=== PATIENT | female | born 1990 | race Caucasian/White ===

== ENCOUNTER 2017-04-01 16:12 | Emergency (ER) | payer OTHER ==
[2017-04-01 17:02] VITALS: BP 101/67
[2017-04-01] MEDS ORDERED: Ibuprofen TAB* 600 MG PO ONE (17:40)
--- NOTE | 2017-04-01 17:48 | UC ---
Breast Complaint - HPI Summary HPI Summary: Breast pain, fever, chills starting yesterday. Has 5-week old baby at home; this feels like when she had mastitis with older child. - History of Current Complaint Hx Obtained From: Patient Breast Chief Complaint: Pain, Left, Right, Color Changes Onset/Duration: Started Days Ago, Atraumatic Timing: Constant Breast Pain Aggravating Factors: Breast Feeding, Palpation Breast Pain Alleviating Factors: Support Breast Associated Signs/Symptoms: Fever, Redness, Warmth - Allergy/Home Medications Allergies/Adverse Reactions: Allergies Allergy/AdvReac Type Severity Reaction Status Date / Time Azithromycin [From Z-Bhupendra] Allergy Unknown Verified 04/01/17 17:02 Reaction Details Morphine Allergy Itching Verified 04/01/17 17:02 Home Medications: Home Medications Hydrocodone-Acetaminophen [[place] 5-325 mg] 1 tab PO 04/01/17 [History] PMH/Surg Hx/FS Hx/Imm Hx Previously Healthy: Yes - Surgical History Surgical History: Yes Surgery Procedure, Year, and Place: 2 2013 - Family History Known Family History: Negative: Blood Disorder - Social History Lives: With Family Alcohol Use: None Substance Use Type: None Smoking Status (MU): Never Smoked Tobacco - Immunization History Most Recent Influenza Vaccination: refussed Most Recent Tetanus Shot: hx Most Recent Pneumonia Vaccination: na Review of Systems Constitutional: Negative Skin: Other - redness bilat breasts Eyes: Negative ENT: Negative Respiratory: Negative Cardiovascular: Negative Gastrointestinal: Negative Genitourinary: Negative Motor: Negative Neurovascular: Negative Musculoskeletal: Negative Neurological: Negative Psychological: Negative All Other Systems Reviewed And Are Negative: Yes Physical Exam Triage Information Reviewed: Yes Appearance: Pain Distress - mild Vital Signs: Initial Vital Signs Temp 102.6 F 04/01/17 16:59 Pulse 113 04/01/17 16:59 Resp 18 04/01/17 16:59 BP 101/67 04/01/17 16:59 Pulse Ox 100 04/01/17 16:59 Vital Signs Reviewed: Yes Eye Exam: Normal, Other - PERRL Eyes: Positive: Conjunctiva Clear ENT Exam: Normal ENT: Positive: Normal ENT inspection, Hearing grossly normal, Pharynx normal, TMs normal Dental Exam: Normal Neck exam: Normal Neck: Positive: Supple, Nontender, No Lymphadenopathy Respiratory Exam: Normal Respiratory: Positive: Chest non-tender, Lungs clear, Normal breath sounds, No respiratory distress, No accessory muscle use Cardiovascular: Positive: No Murmur, Tachycardia Musculoskeletal Exam: Normal Neurological Exam: Normal Neurological: Positive: Alert Psychological Exam: Normal Skin Exam: Other - redness L lower breast, R lateral breast. Nipples leaking milk; no abscess palpated Breast Pain Course/Dx - Diagnoses Provider Diagnoses: Nonpurulent mastitis associated with Discharge - Discharge Plan Condition: Stable Disposition: HOME Prescriptions: Dicloxacillin CAP* [Dynapen CAP*] 500 mg PO QID #28 cap Patient Education Materials: Mastitis (ED) Referrals: Delfina Hong MD [Primary Care Provider] - Additional Instructions: Keep nursing and pumping to move the milk to prevent complications like abscess and worsening infection. It is safe to feel your baby while taking this medication.
== END 2017-04-01 17:50 | disposition home or self-care (01) ==
LOC: UCEAST 16:12
DX: O91.22 Nonpurulent mastitis associated with the puerperium (principal); Z88.4 Allergy status to anesthetic agent; Z88.5 Allergy status to narcotic agent
CPT/HCPCS: 99212; A9270-GY; G0463

== ENCOUNTER 2017-06-14 19:35 | Emergency (ER) | payer OTHER ==
[2017-06-14] MEDS ORDERED: NS 0.9% 1000 ML* 1,000 ML IV ONE (20:02)
[2017-06-14 20:25] LABS: Hematocrit 36 % (35-47); Hemoglobin 12.7 g/dl (12.0-16.0); Mean Corpuscular HGB Conc 35 g/dl (31-36); Mean Corpuscular Hemoglobin 31 pg (27-31); Mean Corpuscular Volume 88 fL (80-97); Mean Platelet Volume 8 um3 (7.4-10.4); Red Cell Distribution Width 14 % (10.5-15); White Blood Count 7.4 10^3/ul (3.5-10.8)
[2017-06-14 20:43] LABS: Urine Bacteria 1+ (Absent); Urine Bilirubin Negative (Negative); Urine Glucose Negative (Negative); Urine Nitrite Negative (Negative)
[2017-06-14 20:48] LABS: ALT 15 U/L (7-52); AST 15 U/L (13-39); Albumin 4.5 g/dL (3.2-5.2); Alkaline Phosphatase 103 U/L (34-104); Anion Gap 5 mmol/L (2-11); BUN/Creatinine Ratio 22.1 (8-20); Blood Urea Nitrogen 15 mg/dL (6-24); C Reactive Protein 9.78 mg/L (< 5.00); CO2 Carbon Dioxide 29 mmol/L (22-32); Calcium 9.4 mg/dL (8.6-10.3); Chloride 104 mmol/L (101-111); EGFR African American 133.5 (>60); EGFR Non-African American 103.8 (>60); Globulin 2.7 g/dL (2-4); Glucose 83 mg/dL (70-100); Lipase 31 U/L (11.0-82.0); Potassium 3.5 mmol/L (3.5-5.0); Sodium 138 mmol/L (133-145); Total Protein 7.2 g/dL (6.4-8.9)
--- NOTE | 2017-06-14 20:48 | ED ---
Raul Chisholm Rebecca, scribed for Landen Pritchett MD on 06/14/17 at 2004 . Abdominal Pain/Female - HPI Summary HPI Summary: Pt is a 26 y/o F who presents to ED c/o L flank pain. Sx began suddenly earlier today at approximately 1500. Pain is currently moderate, ranked 6/10. Treated pain with Tylenol at home, but that did not change symptoms. Sx aggravated and alleviated by nothing. Denies any other symptoms including N/V and fever. PMHx kidney stones with the last episode between 2-3 years ago. Last kidney stone was 9 mm and required a stent. - History of Current Complaint Chief Complaint: EDAbdPain Stated Complaint: LT SIDE PAIN Time Seen by Provider: 06/14/17 19:56 Hx Obtained From: Patient Hx Last Menstrual Period: post 5 weeks Onset/Duration: Sudden Onset, Still Present Severity Currently: Moderate Pain Intensity: 6 Pain Scale Used: 0-10 Numeric Location: Flank - Left Aggravating Factor(s): Nothing Alleviating Factor(s): Nothing Associated Signs and Symptoms: Positive: Negative. Negative: Fever, Nausea, Vomiting Simlar Episode/Dx as:: Prior kidney stone 2-3 years ago Allergies/Adverse Reactions: Allergies Allergy/AdvReac Type Severity Reaction Status Date / Time Azithromycin [From Z-Bhupendra] Allergy Unknown Verified 06/14/17 19:38 Reaction Details Morphine Allergy Itching Verified 06/14/17 19:38 PMH/Surg Hx/FS Hx/Imm Hx Endocrine/Hematology History: Denies: Hx Diabetes, Hx Thyroid Disease Cardiovascular History: Denies: Hx Hypertension Respiratory History: Denies: Hx Asthma, Hx Chronic Obstructive Pulmonary Disease (COPD) GI History: Denies: Hx Ulcer History: Reports: Hx Kidney Stones - RT Psychiatric History: Reports: Hx Anxiety, Hx Depression - Surgical History Surgery Procedure, Year, and Place: 2 2013 Infectious Disease History: No Infectious Disease History: Denies: Hx Hepatitis, Hx Human Immunodeficiency Virus (HIV), Traveled Outside the [place] in Last 30 Days - Family History Known Family History: Negative: Blood Disorder - Social History Alcohol Use: Occasionally Hx Substance Use: No Substance Use Type: Reports: None Hx Tobacco Use: No Smoking Status (MU): Former Smoker Review of Systems Negative: Fever Positive: Abdominal Pain - L flank pain. Negative: Vomiting, Nausea All Other Systems Reviewed And Are Negative: Yes Physical Exam Triage Information Reviewed: Yes Vital Signs On Initial Exam: Initial Vitals Temp Pulse Resp BP Pulse Ox 97.6 F 61 16 110/66 100 06/14/17 19:39 06/14/17 19:39 06/14/17 19:39 06/14/17 19:39 06/14/17 19:39 Vital Signs Reviewed: Yes Appearance: Positive: Well-Appearing, Pain Distress - mild discomfort Skin: Positive: Warm Head/Face: Positive: Normal Head/Face Inspection Eyes: Positive: MIGUEL ANGEL ENT: Positive: Normal ENT inspection Neck: Positive: Supple Respiratory/Lung Sounds: Positive: Breath Sounds Present Cardiovascular: Positive: RRR Abdomen Description: Positive: Nontender, Soft. Negative: CVA Tenderness (R), CVA Tenderness (L) Bowel Sounds: Positive: Present Neurological: Positive: Alert, Oriented to Person Place, Time Psychiatric: Positive: Affect/Mood Appropriate - Karel Coma Scale Coma Scale Total: 15 Diagnostics - Vital Signs Vital Signs Temp Pulse Resp BP Pulse Ox 06/14/17 19:39 97.6 F 61 16 110/66 100 - Laboratory Result Diagrams: 06/14/17 20:16 06/14/17 20:16 Lab Statement: Any lab studies that have been ordered have been reviewed, and results considered in the medical decision making process. - CT Abd/Pel CT CT Interpretation Completed By: Radiologist - 1. 0.8 cm RIGHT lower pole calyceal stone significantly enlarged compared with the prior exam. No additional renal stones. Negative for hydronephrosis. 2. Infra cecal appendix is normal in diameter and remarkable for multiple appendicoliths. No periappendiceal inflammatory change evident to suggest acute appendicitis. ED physician reviewed this radiology report and agrees. Re-Evaluation - Re-Evaluation First Eval Re-Evaluation Time: 22:34 Change: Improved Comment: Discussed results and D/C plan. Abdominal Pain Fem Course/Dx - Course Course Of Treatment: Pt is a 26 y/o F who presents to ED c/o L flank pain. Sx began suddenly earlier today at approximately 1500. Pain is currently moderate, ranked 6/10. Treated pain with Tylenol at home, but that did not change symptoms. Sx aggravated and alleviated by nothing. Denies any other symptoms including N/V and fever. PMHx kidney stones with the last episode between 2-3 years ago. Last kidney stone was 9 mm and required a stent. CT Abd/Pel reveals "1. 0.8 cm RIGHT lower pole calyceal stone significantly enlarged compared with the prior. exam. No additional renal stones. Negative for hydronephrosis. 2. Infra cecal appendix is normal in diameter and remarkable for multiple appendicoliths. No periappendiceal inflammatory change evident to suggest acute appendicitis." In the ED course, pt received fluids. Pt will be D/C to home with Dx of flank pain and a follow up with her PCP. She understands and agrees. - Diagnoses Provider Diagnoses: Flank pain Discharge - Discharge Plan Condition: Stable Disposition: HOME Patient Education Materials: Flank Pain (ED) Referrals: Delfina Hong MD [Primary Care Provider] - 3 Days The documentation as recorded by the Raul hanson Rebecca accurately reflects the service I personally performed and the decisions made by me, Landen Pritchett MD.
--- NOTE | 2017-06-14 22:00 | RAD ---
INDICATION: History of urolithiasis. LEFT flank pain. COMPARISON: June 21, 2014 CT. TECHNIQUE: Multidetector CT images were obtained from the lung bases to the ischial tuberosities. Evaluation of the viscera is limited without IV contrast. Multiplanar reformation. REPORT: Unremarkable visualized inferior thorax. The liver, gallbladder, pancreas, and spleen are unremarkable. Negative for CT abnormality of the upper GI or small bowel. Infra cecal appendix is normal in diameter and remarkable for multiple appendicoliths. No periappendiceal inflammatory change evident. Unremarkable colon. Negative for ascites or free air. Small fat-containing umbilical hernia without inflammatory change. Postsurgical change of prior at the lower anterior abdominal wall. Normal adrenal glands. 0.8 cm RIGHT lower pole calyceal stone significantly enlarged compared with the prior exam. No additional renal stones. Negative for hydronephrosis. Unremarkable nondilated ureters. Multiple pelvic phleboliths noted. Unremarkable partially distended urinary bladder. Unremarkable anteverted uterus and adnexal regions. Negative for lymphadenopathy. Normal diameter abdominal aorta and iliac arteries. Physiologic distention of the IVC. Negative for suspicious osseous lesions. IMPRESSION: 1. 0.8 cm RIGHT lower pole calyceal stone significantly enlarged compared with the prior exam. No additional renal stones. Negative for hydronephrosis. 2. Infra cecal appendix is normal in diameter and remarkable for multiple appendicoliths. No periappendiceal inflammatory change evident to suggest acute appendicitis.
[2017-06-14 22:48] VITALS: BP 100/56
== END 2017-06-14 22:47 | disposition home or self-care (01) ==
LOC: ED 19:35
DX: R10.9 Unspecified abdominal pain (principal); Z87.442 Personal history of urinary calculi; F41.8 Other specified anxiety disorders; Z87.891 Personal history of nicotine dependence; Z88.5 Allergy status to narcotic agent
CPT/HCPCS: 36415; 74176; 80053; 81003; 81015; 83605; 83690; 84702; 85025; 86140; 87086; 96360; 99283

== ENCOUNTER 2017-06-27 11:27 | Emergency (ER) | payer OTHER ==
[2017-06-27 11:46] VITALS: BP 99/55
--- NOTE | 2017-06-27 12:38 | UC ---
Dizzy HPI HPI Summary: 26 yo female has been ill for about a week Initially had a sore throat that resolve after Has had intermittent HAs (none now) Has bilateral hip pain Has marked fatigue...has slept 18 hr a day for the past 3 days has had two episodes of left arm paresthesias primarily involving the ulnar aspect of her arm one lasted about 15 minutes/today's lasted 2 hours no f/c no n/v/d no CP or SOB - History Of Current Complaint Chief Complaint: UCGeneralIllness Stated Complaint: TIRED HEADACHE HIP PAIN ARM NUMB Time Seen by Provider: 06/27/17 12:04 Hx Obtained From: Patient Hx Last Menstrual Period: OVER 1 YEAR Onset/Duration: Gradual Onset Timing: Constant Severity Initially: Moderate Severity Currently: Moderate Pain Intensity: 3 Pain Scale Used: 0-10 Numeric Character: Weak, Dizzy Aggravating Factor(s): Nothing Alleviating Factor(s): Nothing Associated Signs And Symptoms: Negative: Nausea, Vomiting, Diaphoresis, Tinnitus , Chest Pain, SOB, Palpitations, Unsteady Gait, Visual Changes, Decreased Oral Intake, Change In Medication, Change In Diet, OTC Medications - Allergies/Home Medications Allergies/Adverse Reactions: Allergies Allergy/AdvReac Type Severity Reaction Status Date / Time Azithromycin [From Z-Bhupendra] Allergy Unknown Verified 06/27/17 11:38 Reaction Details Morphine Allergy Itching Verified 06/27/17 11:38 Home Medications: Home Medications Cholecalciferol [Vitamin D] 1 cap PO DAILY 06/27/17 [History Confirmed 06/27/17] Probiotic Product [Probiotic] 1 tab PO DAILY 06/27/17 [History Confirmed ] Sertraline* [Zoloft*] 1 tab PO DAILY 06/27/17 [History Confirmed 06/27/17] PMH/Surg Hx/FS Hx/Imm Hx Previously Healthy: Yes - Surgical History Surgical History: Yes Surgery Procedure, Year, and Place: 2 2012, 2016 - Family History Known Family History: Positive: Other - mom has MS Negative: Diabetes, Blood Disorder - Social History Alcohol Use: Occasionally Substance Use Type: None Smoking Status (MU): Former Smoker - Immunization History Most Recent Influenza Vaccination: refussed Most Recent Tetanus Shot: hx Most Recent Pneumonia Vaccination: na Review of Systems Constitutional: Fatigue Skin: Negative Eyes: Negative ENT: Sore Throat - day one of illness only Respiratory: Negative Cardiovascular: Negative Gastrointestinal: Negative Genitourinary: Negative Motor: Negative Neurovascular: Negative Musculoskeletal: Arthralgia Neurological: Headache - intermittent/none now, Weakness Psychological: Negative Is Patient Immunocompromised?: No All Other Systems Reviewed And Are Negative: Yes Physical Exam Triage Information Reviewed: Yes Appearance: Well-Appearing, No Pain Distress, Well-Nourished Vital Signs: Initial Vital Signs Temp 98.1 F 06/27/17 11:41 Pulse 83 06/27/17 11:41 Resp 16 06/27/17 11:41 BP 99/55 06/27/17 11:41 Pulse Ox 98 06/27/17 11:41 Vital Signs Reviewed: Yes Eyes: Positive: Conjunctiva Clear ENT: Positive: Hearing grossly normal. Negative: Nasal congestion, Nasal drainage, Tonsillar exudate, Trismus, Muffled/hoarse voice Dental: Negative: Gross Decay/Caries @, Dental Fracture @, Abscess @, Cellulitis @, Cervical Lymphadenopathy, Bleeding Neck: Positive: Supple, Nontender, Enlarged Nodes @ - scatterred enlarged LNs Respiratory: Positive: Lungs clear, Normal breath sounds, No respiratory distress, No accessory muscle use Cardiovascular: Positive: RRR, No Murmur, Pulses Normal Abdomen Description: Positive: Nontender, No Organomegaly, Soft. Negative: CVA Tenderness (R), CVA Tenderness (L) Bowel Sounds: Positive: Present Neurological: Positive: Alert, Other: - CN2-12 intact/strenght 5/5, DTRs symmetrical Psychological: Positive: Normal Response To Family Skin Exam: Normal Dizzy Course/Dx - Differential Dx/Diagnosis Provider Diagnoses: Fatigue/weakness of uncertain cause. myalgia. paresthesias Discharge - Discharge Plan Condition: Stable Disposition: HOME Patient Education Materials: Paresthesia (ED), Arthralgia (ED), Fatigue (ED) Forms: *Work Release Referrals: Delfina Hong MD [Primary Care Provider] - As Soon As Possible Additional Instructions: blood work pending
[2017-06-27 14:20] LABS: Hematocrit 38 % (35-47); Hemoglobin 13.1 g/dl (12.0-16.0); Mean Corpuscular HGB Conc 35 g/dl (31-36); Mean Corpuscular Hemoglobin 31 pg (27-31); Mean Corpuscular Volume 89 fL (80-97); Mean Platelet Volume 9 um3 (7.4-10.4); Red Blood Count 4.24 10^6/ul (4.0-5.4); Red Cell Distribution Width 14 % (10.5-15)
[2017-06-27 14:41] LABS: Mono Internal Control QC Line Present
[2017-06-27 15:16] LABS: Erythrocyte Sed Rate 39 mm/Hr (0-14)
--- NOTE | 2017-06-28 13:01 | UC ---
Progress - Progress Note Progress Note: CBC reviewed mono neg tsh wnl sed rate mild elevation no change in treatment Taylor 06/28/17
== END 2017-06-27 12:43 | disposition home or self-care (01) ==
LOC: UCEAST 11:27
DX: R53.83 Other fatigue (principal); M79.1 Myalgia; R20.2 Paresthesia of skin; Z88.1 Allergy status to other antibiotic agents; Z88.5 Allergy status to narcotic agent; Z87.891 Personal history of nicotine dependence
CPT/HCPCS: 36415; 81003; 84443; 85025; 85652; 86038; 86308; 99211; G0463

== ENCOUNTER 2018-01-21 08:26 | Emergency (ER) | payer OTHER ==
--- NOTE | 2018-01-21 09:28 | UC ---
Abdominal Pain Female HPI - HPI Summary HPI Summary: Patient comes in with 5 days of periumbilical/left lower quadrant abdominal pain and low back pain. States she had some nausea/vomiting/diarrhea on day 1 but none since then. Pain is worse after eating. She feels gassy and bloated. She does have a history of H. pylori but this was successfully treated many years ago. States the symptoms feel similar. She denies fever or urinary symptoms. LMP over 2 years ago. Patient has PCOS and does not have menses. Is in a monogamous sexual relationship with her fianc and is not worried about STD. - History of Current Complaint Chief Complaint: UCGI Stated Complaint: STOMACH PAINS Time Seen by Provider: 01/21/18 09:10 Hx Obtained From: Patient Hx Last Menstrual Period: states 2 years ago - PCOS Onset/Duration: Gradual Onset, Lasting Days, Still Present Timing: Constant Severity Initially: Moderate Severity Currently: Moderate Pain Intensity: 5 Pain Scale Used: 0-10 Numeric Radiates: Yes Radiates to: Back Character: Cramping Aggravating Factor(s): Food Alleviating Factor(s): Nothing Associated Signs and Symptoms: Positive: Back Pain. Negative: Fever, Constipation, Blood in Stool, Urinary Symptoms, Vaginal Discharge Allergies/Adverse Reactions: Allergies Allergy/AdvReac Type Severity Reaction Status Date / Time azithromycin Allergy Unknown Verified 01/21/18 08:48 Reaction Details morphine Allergy Itching Verified 01/21/18 08:48 Home Medications: Home Medications NK [No Home Medications Reported] 01/21/18 [History Confirmed 01/21/18] PMH/Surg Hx/FS Hx/Imm Hx - Additional Past Medical History Additional PMH: PCOS GI/ History: Kidney Stones - Surgical History Surgical History: Yes Surgery Procedure, Year, and Place: 2 2012, 2017. AGE 2 ABDOMINAL/ LEFT LEG NECROTIZING FASCIITIS. TONSILS. WISDOM TEETH - Family History Known Family History: Positive: Other - mom has MS Negative: Hypertension, Diabetes, Blood Disorder Family History: KIDNEY STONES - Social History Alcohol Use: Occasionally Substance Use Type: None Smoking Status (MU): Light Every Day Tobacco Smoker Amount Used/How Often: 3 cig/ day - Immunization History Most Recent Influenza Vaccination: refussed Most Recent Tetanus Shot: hx Most Recent Pneumonia Vaccination: na Review of Systems Constitutional: Negative Respiratory: Negative Cardiovascular: Negative Gastrointestinal: Abdominal Pain Genitourinary: Negative All Other Systems Reviewed And Are Negative: Yes Physical Exam Triage Information Reviewed: Yes Appearance: Well-Appearing, No Pain Distress, Well-Nourished Vital Signs: Initial Vital Signs Temp 99.3 F 01/21/18 08:49 Pulse 78 01/21/18 08:49 Resp 16 01/21/18 08:49 BP 111/70 01/21/18 08:49 Pulse Ox 98 01/21/18 08:49 Vital Signs Reviewed: Yes Eyes: Positive: Conjunctiva Clear ENT: Positive: Hearing grossly normal Neck: Positive: Supple Respiratory: Positive: No respiratory distress, No accessory muscle use Cardiovascular: Positive: Pulses Normal Abdomen Description: Positive: Soft, Other: - TTP PERIUMBILICALLY, SUPRAPUBIC AND LLQ REGIONS. NO REBOUND OR RIGIDITY. Negative: CVA Tenderness (R), CVA Tenderness (L), Distended, Guarding Bowel Sounds: Positive: Present Musculoskeletal: Positive: No Edema Neurological: Positive: Alert Psychological: Positive: Age Appropriate Behavior Skin: Negative: rashes Diagnostics - Laboratory Diagnostic Studies Completed/Ordered: URINE DIP SP. GR. 1.015, TRACE BLOOD - Radiology CT ABD/PELVIS W/O CONTRAST Xray Interpretation: Positive (See Comments) - 1. NO EVIDENCE FOR ACUTE FINDING OR CAUSE FOR THE PATIENT'S ABDOMINAL PAIN IS SEEN. 2. NONOBSTRUCTING RIGHT RENAL CALCULUS. 3. MILD SPLENOMEGALY. Radiology Interpretation Completed By: Radiologist Abd Pain Female Course/Dx - Differential Dx/Diagnosis Provider Diagnoses: 1. ABDOMINAL PAIN, NOS. 2. 9MM KIDNEY STONE - RIGHT SIDE Discharge - Sign-Out/Discharge Documenting (check all that apply): Discharge - Discharge Plan Condition: Stable Disposition: HOME Patient Education Materials: Kidney Stones (ED), Abdominal Pain (ED) Referrals: Delfina Hong MD [Primary Care Provider] - If Needed Magen Whitten MD [Medical Doctor] - 1 Week Additional Instructions: Unclear etiology of your abdominal pain today. CT scan of the abdomen and pelvis shows a stable 9 mm stone in the right kidney. I would recommend you follow-up with Dr. Whitten about further treatment for this stone. If your abdominal symptoms do not improve call GI for an appointment. You may try taking Prilosec or Prevacid in the morning at least 30 minutes before eating to see if this helps your symptoms. Go to the [facility] ED without fail if you develop worsening pain, fever, blood per rectum, shortness of breath, nausea/vomiting or any other concerning symptoms. [facility] Address: [address], [place] [address] - Billing Disposition and Condition Condition: STABLE Disposition: HOME
--- NOTE | 2018-01-21 10:21 | RAD ---
INDICATION: Hematuria back and abdominal pain. COMPARISON: Comparison is made with a prior CT of the abdomen and pelvis from June 14, 2017. TECHNIQUE: A CT scan of the abdomen and pelvis was performed without intravenous or oral contrast. Contiguous axial sections were obtained from the lung bases through the symphysis pubis. Images were reconstructed in the coronal and sagittal planes. FINDINGS: The lung bases are clear. No pleural effusion is present. The liver is normal in size without significant focal abnormality seen on this noncontrast study. No calcified gallstones are noted. The spleen is mildly enlarged without focal abnormality. The pancreas appears to be within normal limits. The adrenal glands and kidneys are normal in size. There is a calculus in the lower pole of the right kidney measuring 0.9 cm in size which is unchanged. No hydronephrosis is seen. No bladder calculi are noted. The aorta is normal in caliber without significant calcific plaque. No significant enlarged retroperitoneal lymph nodes are seen. The stomach, small and large bowel appear nondistended. The appendix appears normal in caliber. There are a couple appendicoliths present which are unchanged. No inflammatory changes are noted. There is moderate descending and sigmoid diverticulosis without evidence for diverticulitis. There is diastases of the rectus abdominis muscles which is unchanged. The uterus is anteverted and normal in size. No free intraperitoneal air or fluid is seen. No significant focal osseous abnormality is seen. IMPRESSION: 1. NO EVIDENCE FOR ACUTE FINDING OR CAUSE FOR THE PATIENT'S ABDOMINAL PAIN IS SEEN. 2. NONOBSTRUCTING RIGHT RENAL CALCULUS. 3. MILD SPLENOMEGALY.
[2018-01-21 10:44] VITALS: BP 109/59
== END 2018-01-21 10:56 | disposition home or self-care (01) ==
LOC: UCEAST 08:26
DX: N20.0 Calculus of kidney (principal); Z87.442 Personal history of urinary calculi; R16.1 Splenomegaly, not elsewhere classified; Z32.02 Encounter for pregnancy test, result negative; R10.33 Periumbilical pain; R10.32 Left lower quadrant pain; Z88.1 Allergy status to other antibiotic agents; Z88.5 Allergy status to narcotic agent; F17.210 Nicotine dependence, cigarettes, uncomplicated
CPT/HCPCS: 74176; 81003; 84702; 99212; G0463

== ENCOUNTER 2018-01-22 09:26 | Emergency (ER) | payer OTHER ==
[2018-01-22 10:52] LABS: ABS Basophils 0.1 10^3/ul (0-0.2); ABS Eosinophils 0.1 10^3/ul (0-0.6); ABS Lymphocytes 2.1 10^3/ul (1.0-4.8); ABS Monocytes 0.4 10^3/ul (0-0.8); ABS Neutrophils 3.3 10^3/ul (1.5-7.7); ABS Nucleated RBC 0 10^3/ul; Eosinophil % 1.4 % (0-6); Hematocrit 38 % (35-47); Hemoglobin 13.1 g/dl (12.0-16.0); Lymphocyte % 35.7 % (25-47); Mean Corpuscular HGB Conc 35 g/dl (31-36); Mean Corpuscular Hemoglobin 31 pg (27-31); Mean Corpuscular Volume 89 fL (80-97); Mean Platelet Volume 8.2 um3 (7.4-10.4); Nucleated Red Blood Cells % 0; Platelet Count 200 10^3/ul (150-450); Red Blood Count 4.27 10^6/ul (4.0-5.4); Red Cell Distribution Width 13 % (10.5-15)
[2018-01-22 11:15] LABS: EGFR Non-African American 110.5 (>60)
[2018-01-22 11:36] VITALS: BP 104/62
--- NOTE | 2018-01-22 12:22 | RAD ---
INDICATION: Lower abdominal pain in a woman reported to have polycystic ovarian syndrome COMPARISON: Most recent pelvic ultrasound is dated October 01, 2013. There is also a CT of the abdomen and pelvis dated January 21, 2018. TECHNIQUE: Real-time transabdominal only ultrasound examination of the female pelvis including grayscale and Doppler color flow imaging. FINDINGS: Uterus: The uterus is normal in size and echogenicity measuring 7.5 x 3.4 x 4.2 cm. The endometrial stripe is smooth and uniform measuring 7 mm in thickness. Ovaries: The right and left ovary measure 3.0 x 2.0 x 1.6 cm and 2.5 x 1.2 x 2.8 cm, respectively. Normal arterial and venous waveforms are identified. Appearance is within normal limits for the patient's age. There is no free fluid in the cul-de-sac. IMPRESSION: Normal and age-appropriate pelvic ultrasound.
--- NOTE | 2018-01-22 12:38 | ED ---
Abdominal Pain/Female - HPI Summary HPI Summary: Patient here with periumbilical pain 1 week. She noticed this pain upon waking Wednesday morning and reports it's worse with eating - not worse with drinking water. She denies fevers, chills, nausea, vomiting, diarrhea. Last bowel movement was yesterday and was normal for her. H/o h. pylori which she thought this was at first but feels it's different as the week has gone on. Has not tried anything for pain relief such as heat, ibuprofen, acetaminophen, PPI, tums, etc. Otherwise, no previous issues with her gastrointestinal tract (ie. IBS, crohn's, UC, etc). She does have a history of 2 C-sections. Denies recent injury to her abdomen/pelvic region. Denies vaginal discharge, itching irritation and has not had a period in over a year she has PCOS. Denies history of uterine fibroids or issues with her PCOS causing painful cysts or torsion. [facility] and had a noncontrast CT of her abdomen and pelvis which revealed a renal calculi on the right without obstruction along with hematuria on UA. Denies dysuria, urinary frequency, urinary urge and hesitation. She was also found to have diverticulosis without inflammation. Clinically, she appears to have an umbilical hernia and reports it's tender sometimes with palpation but not always. - History of Current Complaint Hx Obtained From: Patient Hx Last Menstrual Period: states 2 years ago - PCOS Pain Intensity: 8 <Violeta Narvaez - Last Filed: 01/24/18 07:19> <Gwyn Whiteside - Last Filed: 01/24/18 08:09> - History of Current Complaint Chief Complaint: EDAbdPain Stated Complaint: ABD PAIN Time Seen by Provider: 01/22/18 10:18 Allergies/Adverse Reactions: Allergies Allergy/AdvReac Type Severity Reaction Status Date / Time azithromycin Allergy Unknown Verified 01/22/18 09:37 Reaction Details morphine Allergy Itching Verified 01/22/18 09:37 PMH/Surg Hx/FS Hx/Imm Hx Previously Healthy: Yes Endocrine/Hematology History: Denies: Hx Anticoagulant Therapy, Hx Blood Disorders, Hx Diabetes, Hx Thyroid Disease, Hx Anemia, Hx Unexplained Bleeding, Hx Coagulopothy Cardiovascular History: Denies: Hx Aneurysm, Hx Hypertension, Hx Pacemaker/ICD Respiratory History: Denies: Hx Asthma, Hx Chronic Obstructive Pulmonary Disease (COPD) GI History: Reports: Hx Ulcer - H. pylori History: Reports: Hx Kidney Stones - 2013 Denies: Hx Renal Disease Sensory History: Denies: Hx Hearing Aid Psychiatric History: Reports: Hx Anxiety, Hx Depression Denies: Hx Panic Disorder - Surgical History Surgery Procedure, Year, and Place: 2 2012, 2017. AGE 2 ABDOMINAL/ LEFT LEG NECROTIZING FASCIITIS. TONSILS. 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 Negative: Fever, Fatigue Eyes: Negative ENT: Negative Cardiovascular: Negative Respiratory: Negative Positive: Abdominal Pain. Negative: Vomiting, Diarrhea, Nausea Genitourinary: Negative Musculoskeletal: Negative Skin: Negative Neurological: Negative Psychological: Normal All Other Systems Reviewed And Are Negative: Yes <Violeta Narvaez - Last Filed: 01/24/18 07:19> Physical Exam Triage Information Reviewed: Yes Vital Signs On Initial Exam: Initial Vitals Temp Pulse Resp BP Pulse Ox 98.5 F 86 14 107/66 98 01/22/18 09:34 01/22/18 09:34 01/22/18 09:34 01/22/18 09:34 01/22/18 09:34 Vital Signs Reviewed: Yes Appearance: Positive: Well-Appearing, No Pain Distress, Obese Skin: Positive: Warm, Skin Color Reflects Adequate Perfusion, Dry Head/Face: Positive: Normal Head/Face Inspection Eyes: Positive: Normal, EOMI, Conjunctiva Clear - anicteric sclera ENT: Positive: Normal ENT inspection, Hearing grossly normal, Pharynx normal - mucosa moist, TMs normal Neck: Positive: Supple, Nontender, No Lymphadenopathy Respiratory/Lung Sounds: Positive: Clear to Auscultation, Breath Sounds Present. Negative: Rales, Rhonchi, Wheezes Cardiovascular: Positive: Normal, RRR, S1, S2 Abdomen Description: Positive: No Organomegaly, Soft, Hernia @ - umbilical - reducible - intermittently tender, Other: - lower ab TTP - B/L lower quadrants and prepubetal region - no rebounding. Negative: CVA Tenderness (R), CVA Tenderness (L), Distended, Guarding Bowel Sounds: Positive: Present Pelvic Exam: Positive: External Exam Normal, Speculum Exam Normal, Bimanual Exam Normal, No Cerv. Motion Tender, No Masses. Negative: Active Bleeding Musculoskeletal: Positive: Normal, Strength/ROM Intact Neurological: Positive: Normal, Sensory/Motor Intact, Alert, Oriented to Person Place, Time, CN Intact II-III Psychiatric: Positive: Other - blunted affect <Violeta Narvaez - Last Filed: 01/24/18 07:19> Vital Signs On Initial Exam: Initial Vitals Temp Pulse Resp BP Pulse Ox 98.5 F 86 14 107/66 98 01/22/18 09:34 01/22/18 09:34 01/22/18 09:34 01/22/18 09:34 01/22/18 09:34 <Gwyn Whiteside - Last Filed: 01/24/18 08:09> Diagnostics - Vital Signs Vital Signs Temp Pulse Resp BP Pulse Ox 01/22/18 11:38 63 100 01/22/18 11:35 98.7 F 58 14 104/62 100 01/22/18 10:30 69 102/67 97 01/22/18 10:10 78 97 01/22/18 10:09 102/57 01/22/18 09:34 98.5 F 86 14 107/66 98 - Laboratory Lab Results: Lab Results 01/22/18 01/22/18 01/22/18 Range/Units 10:39 10:39 10:39 WBC 6.0 (3.5-10.8) 10^3/ul RBC 4.27 (4.0-5.4) 10^6/ul Hgb 13.1 (12.0-16.0) g/dl Hct 38 (35-47) % MCV 89 (80-97) fL MCH 31 (27-31) pg MCHC 35 (31-36) g/dl RDW 13 (10.5-15) % Plt Count 200 (150-450) 10^3/ul MPV 8.2 (7.4-10.4) um3 Neut % (Auto) 55.7 (38-83) % Lymph % (Auto) 35.7 (25-47) % [place] % (Auto) 6.1 (0-7) % Eos % (Auto) 1.4 (0-6) % Baso % (Auto) 1.1 (0-2) % Absolute Neuts (auto) 3.3 (1.5-7.7) 10^3/ul Absolute Lymphs (auto) 2.1 (1.0-4.8) 10^3/ul Absolute Monos (auto) 0.4 (0-0.8) 10^3/ul Absolute Eos (auto) 0.1 (0-0.6) 10^3/ul Absolute Basos (auto) 0.1 (0-0.2) 10^3/ul Absolute Nucleated RBC 0 10^3/ul Nucleated RBC % 0 Sodium 139 (139-145) mmol/L Potassium 3.7 (3.5-5.0) mmol/L Chloride 105 (101-111) mmol/L Carbon Dioxide 27 (22-32) mmol/L Anion Gap 7 (2-11) mmol/L BUN 10 (6-24) mg/dL Creatinine 0.64 (0.51-0.95) mg/dL Est GFR ( Amer) 142.1 (>60) Est GFR (Non-Af Amer) 110.5 (>60) BUN/Creatinine Ratio 15.6 (8-20) Glucose 105 H (70-100) mg/dL Lactic Acid 0.9 (0.5-2.0) mmol/L Calcium 9.2 (8.6-10.3) mg/dL Magnesium 2.0 (1.9-2.7) mg/dL Total Bilirubin 0.30 (0.2-1.0) mg/dL AST 13 (13-39) U/L ALT 11 (7-52) U/L Alkaline Phosphatase 90 (34-104) U/L C-Reactive Protein 10.60 H (< 5.00) mg/L Total Protein 7.3 (6.4-8.9) g/dL Albumin 4.3 (3.2-5.2) g/dL Globulin 3.0 (2-4) g/dL Albumin/Globulin Ratio 1.4 (1-3) Lipase 21 (11.0-82.0) U/L Beta HCG, Quant < 0.60 mIU/mL Result Diagrams: 01/22/18 10:39 01/22/18 10:39 Lab Statement: Any lab studies that have been ordered have been reviewed, and results considered in the medical decision making process. <Violeta Narvaez - Last Filed: 01/24/18 07:19> - Vital Signs Vital Signs Temp Pulse Resp BP Pulse Ox 01/22/18 13:17 98.7 F 63 14 104/62 100 01/22/18 11:38 63 100 01/22/18 11:35 98.7 F 58 14 104/62 100 01/22/18 10:30 69 102/67 97 01/22/18 10:10 78 97 01/22/18 10:09 102/57 01/22/18 09:34 98.5 F 86 14 107/66 98 - Laboratory Lab Results: Lab Results 01/22/18 01/22/18 01/22/18 Range/Units 10:39 10:39 10:39 WBC 6.0 (3.5-10.8) 10^3/ul RBC 4.27 (4.0-5.4) 10^6/ul Hgb 13.1 (12.0-16.0) g/dl Hct 38 (35-47) % MCV 89 (80-97) fL MCH 31 (27-31) pg MCHC 35 (31-36) g/dl RDW 13 (10.5-15) % Plt Count 200 (150-450) 10^3/ul MPV 8.2 (7.4-10.4) um3 Neut % (Auto) 55.7 (38-83) % Lymph % (Auto) 35.7 (25-47) % [place] % (Auto) 6.1 (0-7) % Eos % (Auto) 1.4 (0-6) % Baso % (Auto) 1.1 (0-2) % Absolute Neuts (auto) 3.3 (1.5-7.7) 10^3/ul Absolute Lymphs (auto) 2.1 (1.0-4.8) 10^3/ul Absolute Monos (auto) 0.4 (0-0.8) 10^3/ul Absolute Eos (auto) 0.1 (0-0.6) 10^3/ul Absolute Basos (auto) 0.1 (0-0.2) 10^3/ul Absolute Nucleated RBC 0 10^3/ul Nucleated RBC % 0 Sodium 139 (139-145) mmol/L Potassium 3.7 (3.5-5.0) mmol/L Chloride 105 (101-111) mmol/L Carbon Dioxide 27 (22-32) mmol/L Anion Gap 7 (2-11) mmol/L BUN 10 (6-24) mg/dL Creatinine 0.64 (0.51-0.95) mg/dL Est GFR ( Amer) 142.1 (>60) Est GFR (Non-Af Amer) 110.5 (>60) BUN/Creatinine Ratio 15.6 (8-20) Glucose 105 H (70-100) mg/dL Lactic Acid 0.9 (0.5-2.0) mmol/L Calcium 9.2 (8.6-10.3) mg/dL Magnesium 2.0 (1.9-2.7) mg/dL Total Bilirubin 0.30 (0.2-1.0) mg/dL AST 13 (13-39) U/L ALT 11 (7-52) U/L Alkaline Phosphatase 90 (34-104) U/L C-Reactive Protein 10.60 H (< 5.00) mg/L Total Protein 7.3 (6.4-8.9) g/dL Albumin 4.3 (3.2-5.2) g/dL Globulin 3.0 (2-4) g/dL Albumin/Globulin Ratio 1.4 (1-3) Lipase 21 (11.0-82.0) U/L Beta HCG, Quant < 0.60 mIU/mL Result Diagrams: 01/22/18 10:39 01/22/18 10:39 Lab Statement: Any lab studies that have been ordered have been reviewed, and results considered in the medical decision making process. <Gwyn Whiteside - Last Filed: 01/24/18 08:09> Abdominal Pain Fem Course/Dx - Course Course Of Treatment: Patient presents with 1 week h/o of abdominal pain in the periumbilic and lower quadrants of her abdomen. She was seen at [facility] yesterday where she had a noncontrast CT performed. The results indicate a right renal pole calculus with hematuria and diverticulosis without inflammation. She was seen by Dr. Whitten who ordered outpatient labs which were within normal limits. Patient has follow-up with Dr. Whitten to further investigate her renal stone however he does not feel this is the cause of her pain. She came here today because she feels her pain is getting worse. With a history of PCOS and lack of pelvic exam, both manual pelvic and ultrasound pelvic imaging were done here today. These were negative for acute pathology. Her physical exam is positive for an umbilical hernia but this is reducible and only tender some of the time. Since she is still eating, drinking and moving her bowels without nausea or vomiting and no acute findings of incarcerated hernia on CT yesterday, this does not appear to need surgical intervention at this time. Will have her follow-up with PCP. I would also like to treat her today for possible gastritis as she has a history of H pylori and reports pain in the morning as well as with eating. Patient would like to try GI cocktail and Protonix here today and will follow up with PCP for further testing and treatment as needed. She opted not to wait to see if these meds help but would like to take them and see how she feels when she gets home. Nurse later reports when she went into room to persent pt w/ meds, she was no where to be found. Will mail d/c instructions along w/ danger s/sx of when to return to ED. <Violeta Narvaez - Last Filed: 01/24/18 07:19> <Gwyn Whiteside - Last Filed: 01/24/18 08:09> - Diagnoses Provider Diagnoses: Abdominal pain, Umbilical hernia Discharge - Sign-Out/Discharge Documenting (check all that apply): Discharge - Billing Disposition and Condition Condition: STABLE Disposition: HOME <Violeta Narvaez - Last Filed: 01/24/18 07:19> - Billing Disposition and Condition Condition: STABLE Disposition: HOME <Gwyn Whiteside - Last Filed: 01/24/18 08:09> - Discharge Plan Condition: Stable Disposition: HOME Patient Education Materials: Gastritis (ED), Umbilical Hernia (ED), Acute Abdominal Pain (DC) Referrals: Delfina Hong MD [Primary Care Provider] - Additional Instructions: The definitive cause of your abdominal pain was not identified today however it is suspected you could have gastritis. Medications were ordered free to try however he left before receiving these. You may try these [id number]: Prilosec or Prevacid. It is also encouraged that she will avoid NSAID such as aspirin, Aleve, ibuprofen. If he developed dark or bloody stool, return to the emergency department. Otherwise, follow up with her PCP to report if these medications have helped or not and to discuss possible further testing for H. pylori which she had in the past. You also appeared to have an umbilical hernia however this does not appear to require acute surgery. May follow up with her primary care provider if this seems to be worse as a surgical consult may be necessary in the future. If you develop difficulty eating, drinking, moving her bowels, vomiting, fever, return to the emergency department. It is also encouraged that you keep your follow-up appointment with Dr. Whitten to further discuss your kidney stone.
[2018-01-22] MEDS ORDERED: Al Hydrox/Mg Hydrox/Simet LIQ* 30 ML UDC PO ONE (12:39)
[2018-01-22] MEDS ORDERED: Lidocaine 2% VISCOUS* 15 ML UDC PO ONE (12:39)
[2018-01-22] MEDS ORDERED: Pantoprazole IV* 40 MG IV ONE (12:39)
[2018-01-22] MEDS ORDERED: CMC:Pantoprazole TAB (NF) 40 MG TAB PO SCH (13:00)
== END 2018-01-22 13:19 | disposition home or self-care (01) ==
LOC: ED 09:26
DX: K42.9 Umbilical hernia without obstruction or gangrene (principal); F17.210 Nicotine dependence, cigarettes, uncomplicated; R10.30 Lower abdominal pain, unspecified
CPT/HCPCS: 36415; 76856; 80053; 83605; 83690; 83735; 84702; 85025; 86140; 87480; 87491; 87510; 87591; 87661; 99282; A9270-GY

== ENCOUNTER 2018-01-31 10:34 | Day surgery (SDC) | payer OTHER ==
--- NOTE | 2018-01-24 21:58 | HP ---
CC: Delfina Naranjo MD * ADMITTING HISTORY AND PHYSICAL: DATE OF ADMISSION: 01/31/18 ADMITTING DIAGNOSIS: Right renal calculus. PLANNED PROCEDURE: Right ureteral stent insertion and shockwave lithotripsy of right renal calculus. SURGEON: Dr. Whitten. HISTORY OF PRESENT ILLNESS: Shilpa Kuhn is a 27-year-old young lady with a history of recurrent renal calculi. She recently had been evaluated for abdominal pain and was noted to have a 9 to 10 mm calculus in the right kidney without hydronephrosis. She would like to have treatment for the same and is now being brought in for right stent insertion and shockwave lithotripsy. MEDICATIONS ON ADMISSION: None. ALLERGIES: MORPHINE (itching). FAMILY HISTORY: Mother has a history of kidney stones. REVIEW OF SYSTEMS: She is otherwise in excellent health. There is no history of chest pain or shortness of breath. There is no history of diabetes mellitus or any other major systemic illness. PHYSICAL EXAMINATION GENERAL: Reveals a pleasant healthy appearing young lady. VITAL SIGNS: Blood pressure is 108/68, pulse 100 per minute and regular, temperature 97.7, oxygen saturation 98% on room air. LUNGS: Clear bilaterally. CARDIOVASCULAR: Regular rate and rhythm. S1, S2. ABDOMEN: Soft with mild right flank tenderness. IMPRESSION: A 27-year-old lady with a 9 to 10 mm calculus in the right kidney. I have discussed the procedure in detail including possible risks of bleeding, infection, possible injury to the kidney, and incomplete fragmentation. PLAN: Right stent insertion and shockwave lithotripsy of right renal calculus. [id number]/[facility] #: [id number] [facility]
[~2018-01-31 10:34] MED LIST: Buffered Lidocaine 0.9% SYRIN* 5 ML/SYR SYRINGE INTRADERM ONE; Dexamethasone IV* 4 MG/ML 1 ML (4 MG) IV SLOW PU ONE; Famotidine TAB* 20 MG PO ONE
[2018-01-31] MEDS ORDERED: Famotidine TAB* 20 MG ONE (10:43)
[2018-01-31] MEDS ORDERED: Dexamethasone IV* 4 MG/ML 1 ML (4 MG) ONE (10:43)
[2018-01-31] MEDS ORDERED: Levofloxacin 500 MG IVPREMIX(* 500 MG/100 ML BAG IVPB ONE (10:43)
[2018-01-31] MEDS ORDERED: Midazolam* 1 MG/ML 2 ML VIAL (2 MG) ONE (11:11)
[2018-01-31] MEDS ORDERED: fentaNYL* 50 MCG/ML 2 ML VIAL (100 MCG VIAL) ONE (11:11)
--- NOTE | 2018-01-31 11:54 | RAD ---
HISTORY: Right renal calculus COMPARISONS: January 21, 2018 VIEWS: Frontal views of the abdomen. FINDINGS: BOWEL: There is a nonobstructive bowel gas pattern. CALCULI: There are 2 calculi overlying the lower right renal parenchymal shadow, measuring 0.3 and 0.5 cm in size respectively. These appear to correspond to the calculus noted on the previous examination, and were either overlapping on the previous examination or have fragmented in the interval. BONES AND SOFT TISSUES: There are no osseous abnormalities. OTHER FINDINGS: The lung bases are clear. There is no subphrenic gas. IMPRESSION: RIGHT RENAL CALCULI
[2018-01-31] MEDS ORDERED: Propofol* 10 MG/ML 20 ML BTL IV PUSH ONE (12:20)
[2018-01-31] MEDS ORDERED: Ondansetron INJ* 2 MG/ML VIAL ONE (12:20)
[2018-01-31] MEDS ORDERED: DiMENhydriNATE IV* 50 MG/ML VIAL IV PUSH PRN (12:49)
[2018-01-31] MEDS ORDERED: fentaNYL* 50 MCG/ML 2 ML VIAL (100 MCG VIAL) IV PRN (12:49)
[2018-01-31] MEDS ORDERED: Naloxone* 0.4 MG/ML 1 ML VIAL IV PRN (12:49)
[2018-01-31 14:18] VITALS: BP 114/74
[2018-01-31] MEDS ORDERED: oxyCODONE/Acetamin 5/325 MG* TAB ONE (14:22)
--- NOTE | 2018-01-31 22:28 | OP ---
CC: Dr. Delfina Naranjo; Dr. Magen Whitten* OPERATIVE REPORT: DATE OF OPERATION: 01/31/18 - [facility] DATE OF : 88 SURGEON: Magen Whitten MD ANESTHESIOLOGIST: Dr. Elizabeth. ANESTHESIA: General. PRE-OP DIAGNOSES: 1. Right renal calculus. 2. Gross hematuria. POST-OP DIAGNOSES: 1. Right renal calculus. 2. Gross hematuria. OPERATIVE PROCEDURE: 1. Cystoscopy, right retrograde, right stent insertion. 2. Shockwave lithotripsy of right renal calculus. COMPLICATIONS: None. POSTOPERATIVE CONDITION: Stable. STENT USED: 6-Vietnamese stent, right ureter. INDICATIONS: Shilpa Kuhn is a 27-year-old young lady with a history of renal calculi. She was recently evaluated for flank pain and hematuria and noted to have a fairly large calculus in the right kidney. She is now being brought in for right stent insertion and lithotripsy. DESCRIPTION OF PROCEDURE: After induction of general anesthesia, the patient was placed in dorsal lithotomy position. Sequential compression devices were in place and functioning. Initial cystoscopy revealed a normal-appearing bladder. A guidewire was introduced into the right ureter. Mild fullness of the right collecting system was noted, even though the stone was in the lower pole and it is possible that the stone may have been migrating between the renal pelvis and the lower pole causing the intermittent pain and gross hematuria. A 6-Vietnamese stent was introduced and positioned under fluoroscopic with good proximal and distal positioning obtained. Next, the patient was placed on the lithotripsy table in supine position. The calculus was localized using fluoroscopy and shockwave lithotripsy was commenced at a rate of 90 shocks per minute. After the initial 300 shocks, there was a pause in lithotripsy for several minutes in an effort to minimize any potential trauma to the kidney. Lithotripsy was then resumed and a total of 2000 shocks were administered. The patient tolerated the procedure satisfactorily and was transferred back to recovery area in stable condition. [id number]/[facility] #: [id number] [facility]
== END 2018-01-31 14:50 | disposition home or self-care (01) ==
LOC: OR 10:34
PROVIDERS: ATTEND Urology
DX: N20.0 Calculus of kidney (principal); R31.0 Gross hematuria; Z72.0 Tobacco use; F41.8 Other specified anxiety disorders; J40 Bronchitis, not specified as acute or chronic
CPT/HCPCS: 74018; 81025; A9270-GY; C1876; J1100; J1956; J2250; J2405; J2704; J3010

== ENCOUNTER 2018-06-09 07:32 | Emergency (ER) | payer OTHER ==
--- NOTE | 2018-06-09 07:56 | ED ---
Psychiatric Complaint - HPI Summary HPI Summary: 27 y/o female presents to the ED c/o intermittent panic attacks since last night. Pt reports stress at home and at work. Sx not alleviated by medicaitons - gabapentin. Associated sx: chest heaviness and tingling radiating down her arms, facial numbness. Pt reports increased sleep recently. PMHx anxiety, but never seen in the hospital for it. Denies SI. Pt states she "forgot where she was when driving here". - History Of Current Complaint Chief Complaint: EDGeneral Hx Obtained From: Patient Hx Last Menstrual Period: states 2 years ago - PCOS Onset/Duration: Lasting Hours Timing: Intermittent Episode Lasting Character: Anxious Aggravating Factor(s): Recent Stress Alleviating Factor(s): Nothing Has Suicidal: Denies: Thoughts, With A Plan - Allergies/Home Medications Allergies/Adverse Reactions: Allergies Allergy/AdvReac Type Severity Reaction Status Date / Time azithromycin Allergy Unknown Verified 06/09/18 07:53 Reaction Details morphine Allergy Itching Verified 06/09/18 07:53 Home Medications: Home Medications Gabapentin CAP(*) [Neurontin 100 mg CAP(*)] 200 mg PO DAILY 06/09/18 [History Confirmed 06/09/18] Sertraline* [Zoloft*] 50 mg PO DAILY 06/09/18 [History Confirmed 06/09/18] PMH/Surg Hx/FS Hx/Imm Hx Previously Healthy: No Endocrine/Hematology History: Denies: Hx Anticoagulant Therapy, Hx Blood Disorders, Hx Diabetes, Hx Thyroid Disease, Hx Anemia, Hx Unexplained Bleeding Cardiovascular History: Denies: Hx Aneurysm, Hx Hypertension, Hx Pacemaker/ICD, Other Cardiovascular Problems/Disorders Respiratory History: Denies: Hx Asthma, Hx Chronic Obstructive Pulmonary Disease (COPD), Other Respiratory Problems/Disorders GI History: Reports: Hx Ulcer - H. pylori, Other GI Disorders - currently on abx for diverticulosis History: Reports: Hx Kidney Stones - 2013, 2018-RIGHT Denies: Hx Renal Disease Sensory History: Denies: Hx Contacts or Glasses, Hx Hearing Aid Opthamlomology History: Denies: Hx Contacts or Glasses Neurological History: Denies: Other Neuro Impairments/Disorders Psychiatric History: Reports: Hx Anxiety, Hx Depression Denies: Hx Panic Disorder - Surgical History Surgery Procedure, Year, and Place: 2 2012, 2016. AGE 2 ABDOMINAL/ LEFT LEG NECROTIZING FASCIITIS. TONSILS. WISDOM TEETH Hx Anesthesia Reactions: No - Immunization History Immunizations Up to Date: Yes Infectious Disease History: No Infectious Disease History: Denies: Hx Clostridium Difficile, Hx Hepatitis, Hx Human Immunodeficiency Virus (HIV), Hx of Known/Suspected MRSA, Hx Shingles, Hx Tuberculosis, Hx Known/ Suspected VRE, Hx Known/Suspected VRSA, History Other Infectious Disease, Traveled Outside the [place] in Last 30 Days - Family History Known Family History: Positive: Other - mom has MS Negative: Hypertension, Diabetes, Blood Disorder Family History: KIDNEY STONES - Social History Alcohol Use: Occasionally Alcohol Amount: 2 per month Hx Substance Use: No Substance Use Type: Reports: None Hx Tobacco Use: No Smoking Status (MU): Light Every Day Tobacco Smoker Amount Used/How Often: 3 cig/ day Review of Systems Constitutional: Negative Eyes: Negative ENT: Negative Positive: Chest Pain - heaviness Respiratory: Negative Gastrointestinal: Negative Genitourinary: Negative Musculoskeletal: Negative Skin: Negative Neurological: Other - facial numbness Positive: Anxious All Other Systems Reviewed And Are Negative: No Physical Exam - Summary Physical Exam Summary: Appearance: Alert, conversive, nontoxic appearing Skin: Warm, dry, no mottling, no rashes, no contusions HEENT: EOMI, PERRL, moist mucous membranes Neck: No masses on the neck, supple Respiratory: Clear to auscultation, breath sounds present, no rales, no rhonchi , no wheezes Cardiovascular: RRR, pulses are symmetrical in both lower and upper extremities Abdomen: Soft, non-tender Bowel Sounds: Present Musculoskeletal: No CVA tenderness, no obvious deformity, moving all extremities in a grossly normal manner Neurological: A&Ox3, CN II-XII Intact, moving all extremities symmetrically Psychiatric: Normal affect and mood Triage Information Reviewed: Yes Vital Signs On Initial Exam: Initial Vitals Temp Pulse Resp BP Pulse Ox 98.4 F 81 16 124/77 100 06/09/18 07:33 06/09/18 07:33 06/09/18 07:33 06/09/18 07:33 06/09/18 07:33 Vital Signs Reviewed: Yes Diagnostics - Vital Signs Vital Signs Temp Pulse Resp BP Pulse Ox 06/09/18 07:33 98.4 F 81 16 124/77 100 - Laboratory Lab Statement: Any lab studies that have been ordered have been reviewed, and results considered in the medical decision making process. - EKG 1 EKG Interpretation: 08:14 - SR @ 64 BPM. Normal QRs, QTc, axis, ST T wave. Re-Evaluation - Re-Evaluation 1 Re-Evaluation Time: 09:00 Comment: pt d/c. Discussed possible biofeedback therpaies. Course/Dx - Course Assessment/Plan: 27 y/o female presents to ED c/o panic attacks starting last night. Stress at work and at home. Associated sx: chest heaviness, facial numbness. No history of ID. Normal EKG. Given .5 mg Xanax in ED Course. Pt is feeling slightly better and would like more time to relax in the ED. After some time the pt was d/c home. On re-eval we discussed possible therapies to relieve stress, including biofeedback therapy. - Differential Dx/Clinical Impression Provider Diagnosis: Generalized anxiety disorder Discharge - Sign-Out/Discharge Documenting (check all that apply): Patient Departure - Discharge Plan Condition: Stable Disposition: HOME Prescriptions: ALPRAZolam TAB* [Xanax TAB*] 0.5 mg PO BID PRN #20 tab MDD 2 PRN Reason: Anxiety Patient Education Materials: Generalized Anxiety Disorder (ED) Referrals: Delfina Hong MD [Primary Care Provider] - Additional Instructions: Please follow up with your primary care physician. please work on ways to destresify your life. consider yoga, walking, biofeedback. return if worse or any new symptoms. Take the xanax for anxiety. - Billing Disposition and Condition Condition: STABLE Disposition: Home - Attestation Statements Document Initiated by Scribe: Yes Documenting Scribe: Damon Lee Provider For Whom Mercedes is Documenting (Include Credential): Sarah Scott MD Scribe Attestation: Damon Chisholm, scribed for Sarah Scott MD on 06/09/18 at 1658. Scribe Documentation Reviewed: Yes Provider Attestation: The documentation as recorded by the Damon hanson accurately reflects the service I personally performed and the decisions made by me, Sarah Scott MD
[2018-06-09] MEDS ORDERED: ALPRAZolam TAB* 0.5 MG PO ONE (07:57)
[2018-06-09 09:14] VITALS: BP 121/78
== END 2018-06-09 09:13 | disposition home or self-care (01) ==
LOC: ED 07:32
DX: F41.1 Generalized anxiety disorder (principal)
CPT/HCPCS: 93005; 99282; A9270-GY

== ENCOUNTER 2019-01-30 10:17 | Emergency (ER) | payer BC ==
--- OUTSIDE RECORDS SUMMARY | 2019-01-30 10:24 | XMS REPORT | Continuity of Care Document ---
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 - she also had a very irregular menstrual pattern; Dr Hong Rxd metformin for her which she thinks was shoemaker to conception; Onset: 08/25/2013 History of calculus of kidney Kalin Hu MD Active Note: all right sided - Dr Whitten Onset: 08/25/2017 Panic disorder Kalin Hu MD Active Onset: 08/25/2007 Family history of neurological disorder Kalin Hu MD Active Note: mother with MS - pt had normal MRI Brain in 2017 (Dr Olivera consult) Onset: 08/25/2014 Raised Helicobacter pylori antibody Kalin Hu MD Active Note: stool Ag test negative 01/24/18 Family History Date Family Member(s) Observation Comments Father Depression Father Drug/alcohol abuse Mother Multiple Sclerosis (MS) Mother Diverticulitis Mother Endometriosis Paternal Grandfather Post traumatic stress disorder Paternal Grandmother Arthritis Maternal Grandfather Kidney Disease Maternal Grandmother Arthritis Maternal Grandmother Dementia Social History Type Date Description Comments Sex Unknown Marital Status Significant Other Lives With Male Partner Lives With Children 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 Tobacco Use Start: Unknown Current Cigarette Smoker 5-10 Cigarettes Daily Smoking Status Reviewed: 01/12/19 Current Cigarette Smoker 5-10 Cigarettes Daily ETOH Use Denies alcohol use Tobacco Use Start: Unknown End: Patient is a former Aug 2018 says 4-5 a Unknown smoker day Recreational Drug Use Denies Drug Use Exercise Type/Frequency Does not exercise Allergies, Adverse Reactions, Alerts Date Description Reaction Status Severity Comments 07/13/2017 Zithromax Active 07/13/2017 Morphine Active Medications Medication Date Status Form Strength Qnty SIG Indications Ordering Provider Suprep Bowel Active Solution 17.5-3.13- 354uni Take as Kalin Teixeira Prep Kit 018 1.6GM/177M ts directed by Sabi Hu MD physician the day before your procedure. Split the dose as directed. Miralax Active Powder 3350NF 17 gm every Unknown 000 day mixed w/ 8 oz water/juice Lexapro Active Tablets 20mg 1 by mouth Unknown 000 every day Gabapentin Active Capsules 100mg as needed Unknown 000 Ortho Active Tablets 0.18/0.215 1 by mouth Unknown Tri-Cyclen 000 /0.25 every day () mg-35 mcg Suprep Bowel Hx Solution 17.5-3.13- 354uni as directed Wayne Braun Prep Kit 018 - 1.6GM/177M ts Carlos 09/07/ Sabi Krishnan 018 Sertraline 0 Hx Tablets 50mg 1 by mouth Unknown HCL 000 - every day 018 Amitiza 0 Hx Capsules 24mcg take one Unknown 000 - capsule by twice a day 017 as needed Vitamin C Hx Tablets 500mg 1 by mouth Unknown 000 - every day 018 Vitamin D3 0 Hx Capsules 5000Unit 1 by mouth Unknown Maximum 000 - every day Strength 018 Vitamin B-12 0 Hx Tablets 1000mcg 2 by mouth Unknown 000 - every day 018 Probiotic 0 Hx Capsules 1 by mouth Unknown 000 - every day 018 Immunizations Description No Information Available Vital Signs Date Vital Result Comment 01/12/2019 7:59am Height 67 inches 5'7" Weight 190.00 lb Heart Rate 98 /min BP Systolic 111 mmHg BP Diastolic 69 mmHg O2 % BldC Oximetry 99 % BMI (Body Mass Index) 29.8 kg/m2 08/25/2018 11:51am Height 67 inches 5'7" Weight 196.00 lb Heart Rate 63 /min BP Systolic 99 mmHg BP Diastolic 61 mmHg Respiratory Rate 16 /min Pain Level 0 O2 % BldC Oximetry 98 % BMI (Body Mass Index) 30.7 kg/m2 07/13/2017 3:02pm Height 67 inches 5'7" Weight 190.00 lb Heart Rate 78 /min BP Systolic 100 mmHg BP Diastolic 68 mmHg Respiratory Rate 12 /min BMI (Body Mass Index) 29.8 kg/m2 Results Test Date Facility Test Result H/L Range Note Laboratory test 01/12/2019 [facility] Cytology <pending> finding [address] [place] [address] [phone] CBC Auto Diff 12/23/2018 [facility] White Blood 9.1 10^3/uL N 3.5-10.[address] [place] [address] [phone] Red Blood Count 4.23 10^6/uL N 3.70-4.87 Hemoglobin 13.1 g/dL N 12.0-16.0 Hematocrit 38 % N 33-41 Mean Corpuscular Volume 91 fL N 80-97 Mean Corpuscular Hemoglobin 31 pg N 27-31 Mean Corpuscular HGB Conc 34 g/dL N 31-36 Red Cell Distribution Width 13 % N 10.5-15 Platelet Count 233 10^3/uL N 150-450 Mean Platelet Volume 9.9 fL N 7.4-10.4 Abs Neutrophils 5.5 10^3/uL N 1.5-7.7 Abs Lymphocytes 2.8 10^3/uL N 1.0-4.8 Abs Monocytes 0.5 10^3/uL N 0-0.8 Abs Eosinophils 0.2 10^3/uL N 0-0.6 Abs Basophils 0.1 10^3/uL N 0-0.2 Abs Nucleated RBC 0 10^3/uL Granulocyte % 60.1 % Lymphocyte % 30.8 % Monocyte % 5.9 % Eosinophil % 2.5 % Basophil % 0.7 % Nucleated Red Blood Cells % 0 Comp Metabolic Panel 12/23/2018 [facility] Sodium 138 mmol/L N 135-[address] [place] [address] [phone] Potassium 4.0 mmol/L N 3.5-5.0 Chloride 104 mmol/L N 101-111 Co2 Carbon Dioxide 27 mmol/L N 22-32 Anion Gap 7 mmol/L N 2-11 Glucose 94 mg/dL N 70-100 Blood Urea Nitrogen 15 mg/dL N 6-24 Creatinine 0.69 mg/dL N 0.51-0.95 BUN/Creatinine Ratio 21.7 High 8-20 Calcium 9.3 mg/dL N 8.6-10.3 Total Protein 7.1 g/dL N 6.4-8.9 Albumin 4.6 g/dL N 3.2-5.2 Globulin 2.5 g/dL N 2-4 Albumin/Globulin Ratio 1.8 N 1-3 Total Bilirubin 0.30 mg/dL N 0.2-1.0 Alkaline Phosphatase 83 U/L N 34-104 Alt 10 U/L N 7-52 Ast 13 U/L N 13-39 Egfr Non- 100.6 >60 Egfr 121.7 >60 1 Laboratory test 12/23/2018 [facility] C Reactive 9.18 mg/L High <8.01 finding [address] [facility] [place] [address] [phone] Urinalysis 08/25/2018 [facility] Urine Color Yellow Profile [address] [place] [address] [phone] Urine Appearance Clear Urine Specific [place] 1.013 N 1.010-1.030 Urine pH 6.0 N 5-9 Urine Urobilinogen Negative Negative Urine Ketones Trace Abnormal Negative Urine Protein Negative Negative Urine Leukocytes Negative Negative Urine Blood 1+ Abnormal Negative Urine Nitrite Negative Negative Urine Bilirubin Negative Negative Urine Glucose Negative Negative Urine White Blood Cell Trace(0-5/hpf) Absent Urine Red Blood Cell Trace(0-2/hpf) Absent Urine Bacteria 1+ Abnormal Absent Urine Squamous Epithelial Cell Present Abnormal Absent CBC Auto Diff 08/25/2018 [facility] White Blood 8.4 10^3/uL N 3.5-10.8 [address] [facility] [address] [phone] Red Blood Count 4.26 10^6/uL N 4.00-5.40 Hemoglobin 13.3 g/dL N 12.0-16.0 Hematocrit 39 % N 35-47 Mean Corpuscular Volume 91 fL N 80-97 Mean Corpuscular Hemoglobin 31 pg N 27-31 Mean Corpuscular HGB Conc 34 g/dL N 31-36 Red Cell Distribution Width 12 % N 10.5-15 Platelet Count 223 10^3/uL N 150-450 Mean Platelet Volume 9.6 fL N 7.4-10.4 Abs Neutrophils 5.1 10^3/uL N 1.5-7.7 Abs Lymphocytes 2.7 10^3/uL N 1.0-4.8 Abs Monocytes 0.4 10^3/uL N 0-0.8 Abs Eosinophils 0.1 10^3/uL N 0-0.6 Abs Basophils 0 10^3/uL N 0-0.2 Abs Nucleated RBC 0 10^3/uL Granulocyte % 60.9 % N 38-83 Lymphocyte % 32.5 % N 25-47 Monocyte % 4.4 % N 0-7 Eosinophil % 1.6 % N 0-6 Basophil % 0.6 % N 0-2 Nucleated Red Blood Cells % 0.1 Comp Metabolic Panel 08/25/2018 [facility] Sodium 137 mmol/L N 135-[address] [place] [address] [phone] Potassium 3.5 mmol/L N 3.5-5.0 Chloride 102 mmol/L N 101-111 Co2 Carbon Dioxide 28 mmol/L N 22-32 Anion Gap 7 mmol/L N 2-11 Glucose 88 mg/dL N 70-100 Blood Urea Nitrogen 12 mg/dL N 6-24 Creatinine 0.69 mg/dL N 0.51-0.95 BUN/Creatinine Ratio 17.4 N 8-20 Calcium 9.4 mg/dL N 8.6-10.3 Total Protein 7.6 g/dL N 6.4-8.9 Albumin 4.5 g/dL N 3.2-5.2 Globulin 3.1 g/dL N 2-4 Albumin/Globulin Ratio 1.5 N 1-3 Total Bilirubin 0.30 mg/dL N 0.2-1.0 Alkaline Phosphatase 83 U/L N 34-104 Alt 10 U/L N 7-52 Ast 13 U/L N 13-39 Egfr Non- 100.6 >60 Egfr 121.7 >60 2 Laboratory test 08/25/2018 [facility] C Reactive 22.07 mg/L High <8.[address] [place] [address] [phone] Urine Culture And 08/25/2018 [facility] Urine Culture SEE RESULT [address] [place] [address] [phone] 1 Because ethnic data is not always readily available, this report includes an eGFR for both -Americans and non- Americans. The National Kidney Disease Education Program (NKDEP) does not endorse the use of the MDRD equation for patients that are not between the ages of 18 and 70, are , have extremes of body size, muscle mass, or nutritional status, or are non- or non-. According to the National Kidney Foundation, irrespective of diagnosis, the stage of the disease is based on the level of kidney function: Stage Description GFR(mL/min/1.73 m(2)) 1 Kidney damage with normal or decreased GFR 90 2 Kidney damage with mild decrease in GFR 60-89 3 Moderate decrease in GFR 30-59 4 Severe decrease in GFR 15-29 5 Kidney failure <15 (or dialysis) 2 Because ethnic data is not always readily available, this report includes an eGFR for both -Americans and non- Americans. The National Kidney Disease Education Program (NKDEP) does not endorse the use of the MDRD equation for patients that are not between the ages of 18 and 70, are , have extremes of body size, muscle mass, or nutritional status, or are non- or non-. According to the National Kidney Foundation, irrespective of diagnosis, the stage of the disease is based on the level of kidney function: Stage Description GFR(mL/min/1.73 m(2)) 1 Kidney damage with normal or decreased GFR 90 2 Kidney damage with mild decrease in GFR 60-89 3 Moderate decrease in GFR 30-59 4 Severe decrease in GFR 15-29 5 Kidney failure <15 (or dialysis) 3 SEE RESULT BELOW Name: SHILPA MURCIA : [address]: Kalin Hu MD Acct: [id number] Unit: [id number] AGE: 28 Location: [facility] Re08/25/18 SEX: F Status: REG REF SPEC: [id number] ART: 08/25/[address] [place]: Kalin Hu MD REQ: [id number] RECD: 08/25/18 STATUS: TAMMI WALKER DR: Delfina Hong MD _ SOURCE: URINE SPDESC: ORDERED: Urine Culture Procedure Result Reported Site Urine Culture Final 08/27/18- 0758 ML No growth of clinically significant organisms * ML - Main Lab . END OF REPORT DEPARTMENT OF PATHOLOGY, [address] [place] [address] Rik Hi M.D. Director [facility] # [id number] Procedures Date Code Description Status 09/21/2018 55908 Colonoscopy Flexible Diagnostic Completed 09/21/2018 [id number] Colonoscopy Completed Encounters Type Date Location Provider Dx Diagnosis Office Visit 08/25/2018 [facility] Kalin Teixeira R10.32 Left lower 11:30a MD Fritz quadrant pain K57.30 Dvrtclos of lg int w/o perforation or abscess w/o bleeding E28.2 Polycystic ovarian syndrome Office Visit 07/13/2017 3:00p [facility] Wayne Braun R53.83 Other fatigue [facility] Ariella Gonzalez Z82.0 Family history of epilepsy and oth dis of the nervous sys Plan of Treatment Future Appointment(s):02/21/2019 8:00 am - Charmaine Terrell NP at [facility]03/17/2019 9:00 am - Keny Steinberg M.D. at [facility]02/24/2019 8:45 am - Kalin Hu MD at [facility] [id number]/06/2019 8:00 am - Dorene Thomas MD at [facility]01/12/2019 - Carmen Sales NJesusitaE28.2 Polycystic ovarian syndrome
[2019-01-30 10:42] VITALS: BP 94/58
--- NOTE | 2019-01-30 11:57 | UC ---
FLU HPI - HPI Summary HPI Summary: 28 yo female presents with body aches, headache, and fatigue for the last 2 days. 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 She did get a flu shot this year. Has been taking tylenol and ibuprofen for her discomfort. Denies fever, chills, sinus symptoms, sore throat, cough, SOB, chest pain, abdominal pain, n/v. She is still smoking daily - History of Current Complaint Chief Complaint: UCGeneralIllness Stated Complaint: BODYACHES HEADACHE Time Seen by Provider: 01/30/19 11:56 Hx Obtained From: Patient Hx Last Menstrual Period: 01/29/19 Onset/Duration: Sudden Onset Severity Currently: Moderate Severity Initially: Moderate Pain Intensity: 7 Pain Scale Used: 0-10 Numeric - Allergy/Home Medications Allergies/Adverse Reactions: Allergies Allergy/AdvReac Type Severity Reaction Status Date / Time azithromycin Allergy Unknown Verified 01/30/19 10:43 Reaction Details morphine Allergy Itching Verified 01/30/19 10:43 PMH/Surg Hx/FS Hx/Imm Hx Psychological History: Anxiety, Depression Other History Of: Negative For: Anticoagulant Therapy - Surgical History Surgical History: Yes Surgery Procedure, Year, and Place: 2 2012, 2017. AGE 2 ABDOMINAL/ LEFT LEG NECROTIZING FASCIITIS. TONSILS. WISDOM TEETH - Family History Known Family History: Positive: Other - mom has MS Negative: Hypertension, Diabetes, Blood Disorder Family History: KIDNEY STONES - Social History Alcohol Use: Occasionally Alcohol Amount: 2 per month Substance Use Type: None Smoking Status (MU): Light Every Day Tobacco Smoker Amount Used/How Often: 3 cig/ day - Immunization History Most Recent Influenza Vaccination: refussed Most Recent Tetanus Shot: hx Most Recent Pneumonia Vaccination: na Review of Systems All Other Systems Reviewed And Are Negative: Yes Constitutional: Positive: Fatigue, Other - Body aches Skin: Positive: Negative Eyes: Positive: Negative ENT: Positive: Negative Respiratory: Positive: Negative Cardiovascular: Positive: Negative Gastrointestinal: Positive: Negative Neurovascular: Positive: Negative Neurological: Positive: Negative Psychological: Positive: Negative Physical Exam - Summary Physical Exam Summary: GENERAL: NAD. WDWN. No pain distress. SKIN: No rashes, sores, lesions, or open wounds. HEENT: Head: AT/NC Eyes: EOM intact. Conjunctiva clear without inflammation or discharge. Ears: Hearing grossly normal. TMs intact, no bulging, erythema, or edema. Nose: Nasal mucosa pink and moist. NTTP maxillary and frontal sinus. Throat: Posterior oropharynx without exudates, erythema, or tonsillar enlargement. Uvula midline. NECK: Supple. Nontender. No lymphadenopathy. CHEST: CTAB. No r/r/w. No accessory muscle use. Breathing comfortably and in no distress. CV: RRR. Without m/r/g. Pulses intact. Cap refill <2seconds NEURO: Alert. PSYCH: Age appropriate behavior. Triage Information Reviewed: Yes Vital Signs: Initial Vital Signs Temp 98.2 F 01/30/19 10:39 Pulse 100 01/30/19 10:39 Resp 16 01/30/19 10:39 BP 94/58 01/30/19 10:39 Pulse Ox 100 01/30/19 10:39 Laboratory Tests 01/30/19 13:22 Influenza A (Rapid) Negative Influenza B (Rapid) Negative Vital Signs Reviewed: Yes Flu Course/Dx - Course Course Of Treatment: POC flu negative. Suspect viral illness. Advised to continue tylenol/ibuprofen and be rechecked if symptoms do not improve or if they worsen. - Differential Dx/Diagnosis Provider Diagnosis: Viral illness Discharge - Sign-Out/Discharge Documenting (check all that apply): Patient Departure All imaging exams completed and their final reports reviewed: No Studies - Discharge Plan Condition: Stable Disposition: HOME Patient Education Materials: Viral Syndrome (ED) Referrals: Delfina Hong MD [Primary Care Provider] - Additional Instructions: If you develop a fever, shortness of breath, chest pain, new or worsening symptoms - please call your PCP or go to the ED. 1) Continue tylenol/ibuprofen for discomfort 2) If your symptoms do not improve or if they worsen - please be rechecked - Billing Disposition and Condition Condition: STABLE Disposition: Home
[2019-01-30 13:34] LABS: Influenza A Molecular NEGATIVE (Negative); Influenza B Molecular NEGATIVE (Negative)
== END 2019-01-30 13:45 | disposition home or self-care (01) ==
LOC: UCEAST 10:17
DX: B34.9 Viral infection, unspecified (principal); F41.9 Anxiety disorder, unspecified; F32.9 Major depressive disorder, single episode, unspecified; Z88.1 Allergy status to other antibiotic agents; Z88.5 Allergy status to narcotic agent; F17.210 Nicotine dependence, cigarettes, uncomplicated
CPT/HCPCS: 99211; G0463

== ENCOUNTER 2019-01-31 07:52 | Emergency (ER) | payer BC ==
[2019-01-31] MEDS ORDERED: NS 0.9% 1000 ML** 2,000 ML IV ONE (08:27)
[2019-01-31] MEDS ORDERED: Ketorolac INJ* 30 MG/ML 1 ML VIAL IV PUSH ONE (08:28)
[2019-01-31] MEDS ORDERED: diPHENhydraMINE IV* 50 MG/ML 1 ml VIAL (BENADRYL) IV ONE (08:29)
--- NOTE | 2019-01-31 08:33 | ED ---
Influenza-Like Illness - HPI Summary HPI Summary: Patient's an otherwise healthy 28-year-old female who presents to the ED with generalized illness and weakness. She states she has been sick for approximately 1 week. [facility]. This was negative. She denies any chest pain or shortness of breath. She denies any cough or cough with production. Denies any urinary symptoms, back pain or abdominal pain. She states she awoke this morning despite feeling better yesterday however being sick 1 week, at this morning feeling disoriented with slurred speech. She denies this currently. She states she feels her slurred speech was due to feeling fatigued and weak. She denies any fevers, sweats, chills. She is also endorsing bilateral hip pain and states she cut her menses 2 weeks early. She does not have it currently and menses only lasted 2 days. Denies chance of . She states she took a test 2 days ago and was negative. - History of Current Complaint Chief Complaint: EDGeneral Time Seen by Provider: 01/31/19 08:00 Hx Obtained From: Patient Onset/Duration: Gradual Onset Associated Signs & Symptoms: F/C, Myalgia - none curerntly Related Hx: Possible Flu/Infectious Exposure - Allergy/Home Medications Allergies/Adverse Reactions: Allergies Allergy/AdvReac Type Severity Reaction Status Date / Time azithromycin Allergy Unknown Verified 01/30/19 10:43 Reaction Details morphine Allergy Itching Verified 01/30/19 10:43 PMH/Surg Hx/FS Hx/Imm Hx Previously Healthy: Yes Endocrine/Hematology History: Denies: Hx Anticoagulant Therapy, Hx Blood Disorders, Hx Diabetes, Hx Thyroid Disease, Hx Anemia, Hx Unexplained Bleeding Cardiovascular History: Denies: Hx Aneurysm, Hx Hypertension, Hx Pacemaker/ICD, Other Cardiovascular Problems/Disorders Respiratory History: Denies: Hx Asthma, Hx Chronic Obstructive Pulmonary Disease (COPD), Other Respiratory Problems/Disorders GI History: Reports: Hx Ulcer - H. pylori, Other GI Disorders - currently on abx for diverticulosis History: Reports: Hx Kidney Stones - 2013, 2018-RIGHT Denies: Hx Renal Disease Sensory History: Denies: Hx Contacts or Glasses, Hx Hearing Aid Opthamlomology History: Denies: Hx Contacts or Glasses Neurological History: Denies: Other Neuro Impairments/Disorders Psychiatric History: Reports: Hx Anxiety, Hx Depression Denies: Hx Panic Disorder - Surgical History Surgery Procedure, Year, and Place: 2 2013, 2017. AGE 2 ABDOMINAL/ LEFT LEG NECROTIZING FASCIITIS. TONSILS. WISDOM TEETH Hx Anesthesia Reactions: No - Immunization History Hx Pertussis Vaccination: No Immunizations Up to Date: Yes Infectious Disease History: No Infectious Disease History: Denies: Hx Clostridium Difficile, Hx Hepatitis, Hx Human Immunodeficiency Virus (HIV), Hx of Known/Suspected MRSA, Hx Shingles, Hx Tuberculosis, Hx Known/ Suspected VRE, Hx Known/Suspected VRSA, History Other Infectious Disease, Traveled Outside the [place] in Last 30 Days - Family History Known Family History: Positive: Other - mom has MS Negative: Hypertension, Diabetes, Blood Disorder Family History: KIDNEY STONES - Social History Occupation: Employed Full-time Lives: With Family Alcohol Use: None Alcohol Amount: 2 per month Hx Substance Use: No Substance Use Type: Reports: None Hx Tobacco Use: No Smoking Status (MU): Light Every Day Tobacco Smoker Amount Used/How Often: 3 cig/ day Review of Systems Constitutional: Negative Positive: Fatigue. Negative: Fever, Chills, Skin Diaphoresis Negative: Photophobia, Blurred Vision, Diplopia, Drainage Negative: Dental Pain, Sore Throat Negative: Palpitations, Chest Pain Negative: Shortness Of Breath, Cough Negative: Abdominal Pain, Vomiting, Diarrhea, Nausea Genitourinary: Negative Positive: no symptoms reported, see HPI Positive: Arthralgia - bilateral hip pain Skin: Negative Positive: Headache, Weakness. Negative: Paresthesia, Numbness, Syncope Psychological: Normal All Other Systems Reviewed And Are Negative: Yes Physical Exam Triage Information Reviewed: Yes Vital Signs On Initial Exam: Initial Vitals Temp Pulse Resp BP Pulse Ox 97.8 F 81 20 113/65 98 01/31/19 08:00 01/31/19 08:00 01/31/19 08:00 01/31/19 08:00 01/31/19 08:00 Vital Signs Reviewed: Yes Appearance: Positive: Well-Appearing, Well-Nourished Head/Face: Positive: Normal Head/Face Inspection Eyes: Positive: EOMI, Conjunctiva Clear Neck: Positive: Supple, No Lymphadenopathy Respiratory/Lung Sounds: Positive: Clear to Auscultation, Breath Sounds Present Cardiovascular: Positive: RRR, Pulses are Symmetrical in both Upper and Lower Extremities Musculoskeletal: Positive: Normal, Strength/ROM Intact Neurological: Positive: Speech Normal Psychiatric: Positive: Normal, Affect/Mood Appropriate AVPU Assessment: Alert Diagnostics - Vital Signs Vital Signs Temp Pulse Resp BP Pulse Ox 01/31/19 08:13 79 97 01/31/19 08:11 80 93/59 96 01/31/19 08:00 97.8 F 81 20 113/65 98 - Laboratory Result Diagrams: 01/31/19 08:37 01/31/19 08:37 Lab Statement: Any lab studies that have been ordered have been reviewed, and results considered in the medical decision making process. Flu Symptom Course/Dx - Course Course Of Treatment: During the course of treatment, the patient's evaluated for generalized illness. Patient has been sick for approximately 1 week. She had a flu swab obtained which was negative. She states she no longer has body aches and has never had cough or congestion, however is now feeling disoriented. She is A&O 3. She denies any memory loss or confusion. While she states she is very disoriented, neuro exam is WNL. NIH 0. Labs are WNL except for slightly low WBC at 3.0. Patient is feeling improved after Toradol, Benadryl and 2 L fluids given. She states she is okay for discharge at this time. She is noted to be hypotensive and this was rechecked with improvement. She states she typically runs low into the 90s over 60s. She is given a note for work. She will return to the ED if she has any worsening symptoms. She offers no complaints at this time. - Diagnoses Differential Diagnosis/HQI/PQRI: Positive: Other - Weakness, dizziness, confusion, viral syndrome, hypotension Provider Diagnoses: Weakness Discharge - Sign-Out/Discharge Documenting (check all that apply): Patient Departure Patient Received Moderate/Deep Sedation with Procedure: No - Discharge Plan Condition: Stable Disposition: HOME Patient Education Materials: Weakness (ED) Forms: *Work Release Referrals: Delfina Hong MD [Primary Care Provider] - Additional Instructions: Will this is most likely not be direct cause of your symptoms, you have hypotension on today's visit I have given you information Drink plenty of fluids If any symptoms worsen, please return to the ED Out of work 2 days Ibuprofen or Tylenol for any discomfort - Billing Disposition and Condition Condition: STABLE Disposition: Home
[2019-01-31 09:08] LABS: INR 1.16 (0.82-1.09)
[2019-01-31 09:11] LABS: ALT 18 U/L (7-52); AST 21 U/L (13-39); Albumin 4.2 g/dL (3.2-5.2); Albumin/Globulin Ratio 1.5 (1-3); Alkaline Phosphatase 83 U/L (34-104); Anion Gap 6 mmol/L (2-11); BUN/Creatinine Ratio 19.4 (8-20); Blood Urea Nitrogen 13 mg/dL (6-24); CO2 Carbon Dioxide 25 mmol/L (22-32); Calcium 8.9 mg/dL (8.6-10.3); Chloride 108 mmol/L (101-111); EGFR African American 125.9 (>60); EGFR Non-African American 104.1 (>60); Globulin 2.8 g/dL (2-4); Glucose 90 mg/dL (70-100); Potassium 3.7 mmol/L (3.5-5.0); Sodium 139 mmol/L (135-145)
[2019-01-31 09:16] LABS: HCG Pregnancy < 0.60 mIU/mL
[2019-01-31 09:26] LABS: ABS Basophils 0 10^3/ul (0-0.2); ABS Eosinophils 0 10^3/ul (0-0.6); ABS Lymphocytes 0.6 10^3/ul (1.0-4.8); ABS Monocytes 0.4 10^3/ul (0-0.8); ABS Nucleated RBC 0 10^3/ul; Eosinophil % 0.5 %; Hematocrit 41 % (33-41); Hemoglobin 13.7 g/dL (12.0-16.0); Lymphocyte % 20.3 %; Mean Corpuscular HGB Conc 34 g/dL (31-36); Mean Corpuscular Hemoglobin 31 pg (27-31); Mean Corpuscular Volume 91 fL (80-97); Nucleated Red Blood Cells % 0; Platelet Count 177 10^3/uL (150-450); Red Blood Count 4.47 10^6 /uL (3.70-4.87); Red Cell Distribution Width 13 % (10.5-15)
[2019-01-31 11:07] VITALS: BP 92/58
== END 2019-01-31 11:18 | disposition home or self-care (01) ==
LOC: ED 07:52
DX: R53.1 Weakness (principal); F17.210 Nicotine dependence, cigarettes, uncomplicated; F41.9 Anxiety disorder, unspecified; F32.9 Major depressive disorder, single episode, unspecified; Z88.5 Allergy status to narcotic agent; Z87.442 Personal history of urinary calculi
CPT/HCPCS: 36415; 71046; 80053; 83605; 84484; 84702; 85025; 85610; 96361; 96374; 96375; 99283; J1200; J1885

== ENCOUNTER 2019-05-12 07:46 | Emergency (ER) | payer BC ==
--- OUTSIDE RECORDS SUMMARY | 2019-05-12 07:53 | XMS REPORT | Continuity of Care Document ---
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 after seeing 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 diagnosed - she also had a very irregular menstrual pattern; Dr Hong Rxd metformin for her which she thinks was shoemaker to conception; History of calculus of kidney Kalin Hu MD Onset: 08/25/2013 Note: all right sided - Dr Whitten Panic disorder Kalin Hu MD Onset: 08/25/2017 Family history of neurological disorder Kalin Hu MD Onset: 2006 Note: mother with MS - pt had normal MRI Brain in 2017 (Dr Olivera consult) Raised Helicobacter pylori antibody Kalin Hu MD Onset: 08/25/2014 Note: stool Ag test negative 01/24/18 Family History Date Family Member(s) Observation Comments General Arthritis General Rheumatoid Arthritis Father Depression Father Drug/alcohol abuse Mother Multiple Sclerosis (MS) Mother Diverticulitis Mother Endometriosis Paternal Grandfather Post traumatic stress disorder Paternal Grandmother Arthritis Maternal Grandfather Kidney Disease Maternal Grandmother Arthritis Maternal Grandmother Dementia Social History Type Date Description Comments Sex Unknown Marital Status Significant Other Lives With Male Partner Lives With Children 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 Tobacco Use Start: Unknown Current Cigarette Smoker 5-10 Cigarettes Daily Smoking Status Reviewed: 04/26/19 Current Cigarette Smoker 5-10 Cigarettes Daily ETOH Use Denies alcohol use Tobacco Use Start: Unknown End: Patient is a former Aug 2018 says 4-5 a Unknown smoker day Recreational Drug Use Denies Drug Use Exercise Type/Frequency Does not exercise Allergies, Adverse Reactions, Alerts Active Allergies Reaction Severity Comments Date Zithromax 07/13/2017 Morphine 07/13/2017 Medications Active Medications SIG Qnty Indications Ordering Provider Date Folic Acid take one 90tabs Keny Steinberg, 04/26/2019 1mg Tablets capsule/tablet M.D. daily by mouth Sulfasalazine take one 60tabs M77.30 Keny Steinberg, 03/27/2019 500mg capsule/tablet M.D. Tablets daily by mouth for 1 week then 1 twice daily ongoing Gabapentin as needed Unknown 100mg Capsules Meloxicam 1 by mouth every Unknown 15mg Tablets day History Medications Nuvaring one ring 1units Z30.2 Dvora 03/16/2019 - 0.12-0.015mg/24HR vaginally, remove MD William 03/17/2019 Ring in 3 weeks, nothing x [address] new ring Suprep Bowel Prep Kit Take as directed 354ungian Teixeira 09/07/2018 - by your physician MD Fritz 03/17/2019 17.5-3.13-1.6GM/177ML the day before Solution your procedure. Split the dose as directed. Suprep Bowel Prep Kit as directed 354ungina Braun 08/29/2018 - Ariella Gonzalez 09/07/2018 17.5-3.13-1.6GM/177ML Solution Sertraline HCL 1 by mouth every Unknown - 50mg Tablets day 08/24/2018 Miralax 17 gm every day Unknown - 3350NF Powder mixed w/ 8 oz 03/17/2019 water/juice Amitiza take one capsule Unknown - 24mcg Capsules by twice a day as 07/12/2017 needed Vitamin C 1 by mouth every Unknown - 500mg Tablets day 08/24/2018 Vitamin D3 Maximum 1 by mouth every Unknown - Strength day 08/24/2018 5000Unit Capsules Vitamin B-12 2 by mouth every Unknown - 1000mcg Tablets day 08/24/2018 Probiotic 1 by mouth every Unknown - Capsules day 08/24/2018 Lexapro 1 by mouth every Unknown - 20mg Tablets day 03/17/2019 Ortho Tri-Cyclen (28) 1 by mouth every Unknown - day 03/17/2019 0.18/0.215/0.25 mg-35 mcg Tablets Vital Signs Date Vital Result Comment 04/26/2019 8:28am Height 67 inches 5'7" Weight 184.25 lb Heart Rate 60 /min BP Systolic Sitting 95 mmHg BP Diastolic Sitting 60 mmHg Pain Level 3 O2 % BldC Oximetry 96 % BMI (Body Mass Index) 28.9 kg/m2 03/27/2019 10:26am Height 67 inches 5'7" Weight 183.25 lb Heart Rate 74 /min BP Systolic Sitting 96 mmHg BP Diastolic Sitting 68 mmHg Pain Level 4 O2 % BldC Oximetry 98 % BMI (Body Mass Index) 28.7 kg/m2 03/17/2019 9:17am Height 67 inches 5'7" Weight 187.00 lb Heart Rate 85 /min BP Systolic Sitting 97 mmHg BP Diastolic Sitting 69 mmHg Respiratory Rate 14 /min BMI (Body Mass Index) 29.3 kg/m2 03/16/2019 7:58am Height 67 inches 5'7" Weight 188.00 lb Heart Rate 72 /min BP Systolic 99 mmHg BP Diastolic 66 mmHg O2 % BldC Oximetry 100 % BMI (Body Mass Index) 29.4 kg/m2 Last Menstrual Period [id number] 01/12/2019 7:59am Height 67 inches 5'7" Weight [...] Date Facility Test Result H/L Range Note CBC Auto Diff 04/25/2019 [facility] White Blood 6.1 10^3/uL N 3.5-10.[address] [place] [address] [phone] Red Blood Count 4.23 10^6/uL N 3.70-4.87 Hemoglobin 13.0 g/dL N 12.0-16.0 Hematocrit 38 % N 35-47 Mean Corpuscular Volume 91 fL N 80-97 Mean Corpuscular Hemoglobin 31 pg N 27-31 Mean Corpuscular HGB Conc 34 g/dL N 31-36 Red Cell Distribution Width 13 % N 10-15 Platelet Count 191 10^3/uL N 150-450 Mean Platelet Volume 10.2 fL N 7.4-10.4 Abs Neutrophils 4.3 10^3/uL N 1.5-7.7 Abs Lymphocytes 1.5 10^3/uL N 1.0-4.8 Abs Monocytes 0.3 10^3/uL N 0-0.8 Abs Eosinophils 0.0 10^3/uL N 0-0.6 Abs Basophils 0.1 10^3/uL N 0-0.2 Abs Nucleated RBC 0.0 10^3/uL Granulocyte % 69.6 % Lymphocyte % 23.9 % Monocyte % 4.9 % Eosinophil % 0.8 % Basophil % 0.8 % Nucleated Red Blood Cells % 0.0 Comp Metabolic Panel 04/25/2019 [facility] Sodium 139 mmol/L N 135-[address] [place] [address] [phone] Potassium 4.2 mmol/L N 3.5-5.0 Chloride 106 mmol/L N 101-111 Co2 Carbon Dioxide 26 mmol/L N 22-32 Anion Gap 7 mmol/L N 2-11 Glucose 100 mg/dL N 70-100 Blood Urea Nitrogen 12 mg/dL N 6-24 Creatinine 0.69 mg/dL N 0.51-0.95 BUN/Creatinine Ratio 17.4 N 8-20 Calcium 9.4 mg/dL N 8.6-10.3 Total Protein 7.3 g/dL N 6.4-8.9 Albumin 4.6 g/dL N 3.2-5.2 Globulin 2.7 g/dL N 2-4 Albumin/Globulin Ratio 1.7 N 1-3 Total Bilirubin 0.40 mg/dL N 0.2-1.0 Alkaline Phosphatase 72 U/L N 34-104 Alt 9 U/L N 7-52 Ast 13 U/L N 13-39 Egfr Non- 100.6 >60 Egfr 121.7 >60 1 Laboratory test 04/25/2019 [facility] Erythrocyte Sed 45 mm/Hr High 0-[address] [place] [address] [phone] C Reactive Protein 19.54 mg/L High <8.01 Laboratory test 04/25/2019 [facility] Rheumatoid Factor < 10 IU/ mL N <15 finding [address] [place] [address] [phone] Cyclic Citrullinated Pep Igg <pending> Laboratory test 03/23/2019 [facility] Thyroperoxidase AB 0.26 IU /mL N <9 finding [address] [place] [address] [phone] Vitamin B12 And 03/17/2019 [facility] Vitamin B12 413 pg/mL N 180-914 2 Folate Serum [address] [place] [address] [phone] Folic Acid (Folate) 10.62 ng/mL >3.99 CBC Auto Diff 03/17/2019 [facility] White Blood 8.2 10^3/uL N 3.5-10.[address] [place] [address] [phone] Red Blood Count 4.28 10^6/uL N 3.70-4.87 Hemoglobin 13.1 g/dL N 12.0-16.0 Hematocrit 39 % N 35-47 Mean Corpuscular Volume 90 fL N 80-97 Mean Corpuscular Hemoglobin 31 pg N 27-31 Mean Corpuscular HGB Conc 34 g/dL N 31-36 Red Cell Distribution Width 13 % N 10-15 Platelet Count 249 10^3/uL N 150-450 Mean Platelet Volume 9.3 fL N 7.4-10.4 Abs Neutrophils 5.2 10^3/uL N 1.5-7.7 Abs Lymphocytes 2.4 10^3/uL N 1.0-4.8 Abs Monocytes 0.4 10^3/uL N 0-0.8 Abs Eosinophils 0.1 10^3/uL N 0-0.6 Abs Basophils 0.0 10^3/uL N 0-0.2 Abs Nucleated RBC 0.0 10^3/uL Granulocyte % 63.8 % Lymphocyte % 29.3 % Monocyte % 5.0 % Eosinophil % 1.4 % Basophil % 0.5 % Nucleated Red Blood Cells % 0.0 Laboratory 03/17/2019 [facility] Aso 200 IU/mL Abnormal <200 [address] (Antistreptolysin IU/mL Iu/[place] [address] O) Titer [phone] Anca AB Ser 03/17/2019 [facility] C-Anca Negative Negative If [address] [place] [address] [phone] P-Anca Negative Negative 4 Ssa/SSB Abs Igg 03/17/2019 [facility] SS-A/Ro Antibody <0.[address] [place], [place] [id number] [phone] SS-B/La Antibody <0.2 U 6 Laboratory test 03/17/2019 [facility] Erythrocyte Sed 34 mm/Hr High 0-[address] [place] [address] [phone] C Reactive Protein 8.88 mg/L High <8.01 Laboratory test 01/14/2019 [facility] Progesterone 0.6 ng/mL [address] [place] [address] [phone] Testosterone Free 01/14/2019 [facility] Free Testosterone 0.55 ng/dL 0.06- 8 & Total [address] ng/dl 1.06 [place] [address] [phone] Testosterone 23 ng/dL 8-60 9 Laboratory test 01/12/2019 [facility] Cytology SEE RESULT 10, [address] [place] [address] [phone] Laboratory test 12/23/2018 [facility] C Reactive 9.18 mg/L High <8.[address] Protein 1 [place] [address] [phone] Comp Metabolic 12/23/2018 [facility] Sodium 138 mmol/L N 135- Panel [address] [place] [address] [phone] Potassium 4.0 mmol/L N 3.5-5.0 Chloride 104 [...] Egfr Non- 100.6 >60 Egfr 121.7 >60 12 CBC Auto Diff 12/23/2018 [facility] White Blood 9.1 10^3/uL N 3.5-10.[address] [place] [address] [phone] Red Blood Count 4.23 10^6/uL N 3.70-4.87 [...] Blood Cells % 0 Comp Metabolic Panel 08/25/2018 [facility] Sodium 137 mmol/L N 135-[address] [place] [address] [phone] Potassium 3.5 mmol/L N 3.5-5.0 Chloride 102 [...] Egfr Non- 100.6 >60 Egfr 121.7 >60 13 Laboratory test 08/25/2018 [facility] C Reactive 22.07 mg/L High <8.[address] [place] [address] [phone] Urine Culture And 08/25/2018 [facility] Urine SEE RESULT [address] [place] [address] [phone] CBC Auto Diff 08/25/2018 [facility] White Blood 8.4 N 3.5- 10.[address] Count 10^3/[place] [address] [phone] Red Blood Count 4.26 10^6/uL N 4.00-5.40 [...] 0-2 Nucleated Red Blood Cells % 0.1 Urinalysis Profile 08/25/2018 [facility] Urine Color Yellow [address] [place] [address] [phone] Urine Appearance Clear Urine Specific [place] 1.013 N 1.010-1.030 Urine pH 6.0 N [...] Urine Squamous Epithelial Cell Present Abnormal Absent 1 Because ethnic data is not always [...] 5 Kidney failure <15 (or dialysis) 2 Normal Range 180 to 914 Indeterminate Range 145 to 180 Deficient Range <145 3 Normal values may vary with age, season and geographic area. Titers above upper limits may be indicative of infection, however only a two dilution rise in titer is required to be considered significant. ASO titer will usually rise above upper limits within one week of exposure, increase to peak levels at 3-5 weeks and return to baseline level at 6-12 twelve months. 4 Negative for cANCA and pANCA patterns by immunofluorescence. ADDITIONAL INFORMATION This test was developed and its performance characteristics determined by [facility] in a manner consistent with CLIA requirements. This test has not been cleared or approved by the U.S. Food and Drug Administration. Test Performed by: [facility] [place] [address] 5 REFERENCE VALUE <1.0 (Negative) 6 REFERENCE VALUE <1.0 (Negative) Test Performed by: [facility] [employer] [place] [address] 7 Female reference ranges for Progesterone: Follicular phase.......0.3 - 1.5 ng/ml Mid-luteal phase.......5.2 - 18.5 ng/ml Postmenopausal.........< 0.8 ng/ml 1st trimester.........4.7 - 50.0 ng/ml 2nd trimester.........19.4 - 45.3 ng/ml 8 ADDITIONAL INFORMATION Testing performed by [facility]. This test was developed and its performance characteristics determined by [facility] in a manner consistent with CLIA requirements. This test has not been cleared or approved by the U.S. Food and Drug Administration. 9 ADDITIONAL INFORMATION Testing performed by [facility]at[facility]-Tandem Mass Spectrometry (LC-MS/MS). This test was developed and its performance characteristics determined by [facility] in a manner consistent with CLIA requirements. This test has not been cleared or approved by the U.S. Food and Drug Administration. Test Performed by: [facility] [address] [place] [address] 10 [id number] 11 SEE RESULT BELOW Name: SHILPA MURCIA : [address]: Carmen Sales NP Acct: [id number] Unit: [id number] AGE: 28 Location: [facility] Re01/12/19 SEX: F Status: REG REF SPEC: [id number] ART: 01/12/[address] [facility] [address]: Carmen Sales NP REQ: [id number] RECD: 01/12/191485 STATUS: SOUT _ ORDERED: TP IMAGE ANALYS COMMENTS: [id number] Negative for Intraepithelial lesion or Malignancy A. Ectocervical/Endocervical Specimen Adequacy: Satisfactory of evaluation Transformation zone component identified Patient Information: HPV: Thin Layer Pap Test w/reflex to high risk HPV RNA testing when ASCUS Actual Specimen Date: 01/12/19 LMP If Unknown: Last Menstrual Period Not Given. ?: N Post Menopausal?: N Hysterectomy?: N Previous Abnormal Pap Smears?:N Signed by and Reported on: ZO Betancur (ASCP) 1430 This Pap test was evaluated with the assistance of the e[employer] Test Imaging System. Due to cytologic findings at the enforcement manager microscope, comprehensive manual rescreening by a Time Study Engineer may be required. The Pap Smear is a screening test designed to aid in the detection of premalignant and malignant conditions of the uterine cervix. It is not a diagnostic procedure and should not be used as the sole means of detecting cervical cancer. Both false- positive and false- negative reports do occur. Depending on your risk status, a Pap smear should be obtained and evaluated every 1-3 years. END OF REPORT DEPARTMENT OF PATHOLOGY, [address] [place] [address] Rik Hi M.D. Director [facility] # [id number] 12 Because ethnic data is not always readily [...] 15-29 5 Kidney failure <15 (or dialysis) 13 Because ethnic data is not always readily [...] 15-29 5 Kidney failure <15 (or dialysis) 14 SEE RESULT BELOW Name: SHILPA MURCIA : [address]: Kalin Hu MD Acct: [id number] Unit: [id number] AGE: 28 Location: [facility] Re08/25/18 SEX: F Status: REG REF SPEC: [id number] ART: 08/25/[address] [facility] [address]: Kalin Hu MD REQ: [id number] RECD: 08/25/18 STATUS: TAMMI WALKER DR: Delfina Hong MD _ SOURCE: URINE SPDESC: ORDERED: Urine Culture Procedure Result Reported Site Urine Culture Final 08/27/18- 0758 ML No growth of clinically significant organisms * ML - Main Lab . END OF REPORT DEPARTMENT OF PATHOLOGY, [address] [place] [address] Rik Hi M.D. 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 polyarthropathy M79.643 Pain in unspecified hand M70.60 Trochanteric bursitis, unspecified hip D72.819 Decreased white blood cell count, unspecified M79.671 Pain in right foot M79.10 Myalgia, unspecified site Office Visit 03/16/2019 8:00a [facility] Dorene Thomas, Z30.09 Encounter for oth [facility] general coun and advice on contraception Office Visit 01/12/2019 8:00a [facility] Carmen Sales, E28.2 Polycystic ovarian [facility] N.P. syndrome R53.82 Chronic fatigue, unspecified F32.9 Major depressive disorder, single episode, unspecified Z12.4 Encounter for screening for malignant neoplasm of cervix Office Visit 08/25/2018 [facility] Gastroenterology Kalin Teixeira R10.32 Left lower 11:30a MD Fritz quadrant pain K57.30 Dvrtclos of lg int w/o perforation or abscess w/o bleeding E28.2 Polycystic ovarian syndrome Office Visit 07/13/2017 3:00p [facility] Wayne Braun R53.83 Other fatigue [facility] Ariella Gonzalez Z82.0 Family history of epilepsy and oth dis of the nervous sys Plan of Treatment Future Appointment(s):08/28/2019 8:40 am - Keny Steinberg M.D. at [facility]ology [facility]04/26/2019 - Keny Steinberg M.D.M06.4 Inflammatory nuumajahcxpxdkiB30.5 Low back painZ79.899 Other fdc (current) drug ofedakdP95.30 Calcaneal spur, unspecified footFollow up:Follow up in 3 to 4 months or sooner if needed
[2019-05-12 07:59] VITALS: BP 104/69
--- NOTE | 2019-05-12 08:09 | UC ---
Respiratory Complaint HPI - HPI Summary HPI Summary: Ms. Kuhn has had about a week of URI symptoms. She has nasal congestion, mild ear pain and itchy throat. Seems to have settled in her chest and now her chest feels heavy and she is coughing frequently and it is intermittently productive. She has been using OTC Robitussin and antihistamines which just make her tired. - History of Current Complaint Chief Complaint: UCRespiratory Stated Complaint: COUGH Time Seen by Provider: 05/12/19 07:57 Hx Obtained From: Patient Hx Last Menstrual Period: "last week" Onset/Duration: Gradual Onset Severity Initially: Mild Severity Currently: Moderate Pain Intensity: 2 Character: Cough: Productive Associated Signs And Symptoms: Positive: URI, Nasal Congestion - Allergies/Home Medications Allergies/Adverse Reactions: Allergies Allergy/AdvReac Type Severity Reaction Status Date / Time azithromycin Allergy Unknown Verified 05/12/19 07:55 Reaction Details morphine Allergy Itching Verified 05/12/19 07:55 PMH/Surg Hx/FS Hx/Imm Hx Previously Healthy: Yes Other History Of: Negative For: Anticoagulant Therapy - Surgical History Surgical History: Yes Surgery Procedure, Year, and Place: 2 2012, 2017. AGE 2 ABDOMINAL/ LEFT LEG NECROTIZING FASCIITIS. TONSILS. WISDOM TEETH. KIDNEY STONES - Family History Known Family History: Positive: Other - mom has MS Negative: Hypertension, Diabetes, Blood Disorder Family History: KIDNEY STONES - Social History Alcohol Use: None Alcohol Amount: 2 per month Substance Use Type: None Smoking Status (MU): Light Every Day Tobacco Smoker Amount Used/How Often: ~1/4 PPD Length of Time of Smoking/Using Tobacco: Since Age 15 Household Exposure Type: Cigarettes - Immunization History Most Recent Influenza Vaccination: refussed Most Recent Tetanus Shot: hx Most Recent Pneumonia Vaccination: na Review of Systems All Other Systems Reviewed And Are Negative: Yes Constitutional: Positive: Negative ENT: Positive: Sore Throat, Nasal Discharge, Sinus Congestion Respiratory: Positive: Cough Is Patient Immunocompromised?: No Physical Exam - Summary Physical Exam Summary: She was nontoxic in appearance with stable vitals Triage Information Reviewed: Yes Appearance: Well-Appearing Vital Signs: Initial Vital Signs Temp 97.3 F 05/12/19 07:53 Pulse 78 05/12/19 07:53 Resp 18 05/12/19 07:53 BP 104/69 05/12/19 07:53 Pulse Ox 100 05/12/19 07:53 Vital Signs Reviewed: Yes Eyes: Positive: Conjunctiva Clear ENT: Positive: Pharyngeal erythema, Nasal congestion, TM dull Neck exam: Normal Respiratory: Positive: No respiratory distress, No accessory muscle use, Other: - Coarse upper airway sounds Respiratory Course/Dx - Course Course Of Treatment: This likely started as a URI. It settled in her chest and that she is a smoker I will use doxycycline as well as Tessalon Perles which do not make her sleepy. - Differential Dx/Diagnosis Provider Diagnosis: Bronchitis Discharge - Sign-Out/Discharge Documenting (check all that apply): Patient Departure All imaging exams completed and their final reports reviewed: No Studies - Discharge Plan Condition: Stable Disposition: HOME Patient Education Materials: Acute Bronchitis (ED), How to Stop Smoking (ED) Referrals: Delfina Hong MD [Primary Care Provider] - - Billing Disposition and Condition Condition: STABLE Disposition: Home
== END 2019-05-12 08:22 | disposition home or self-care (01) ==
LOC: UCCORT 07:46
DX: Z88.1 Allergy status to other antibiotic agents (principal); F17.200 Nicotine dependence, unspecified, uncomplicated
CPT/HCPCS: 99212; G0463

== ENCOUNTER 2019-08-30 07:55 | Emergency (ER) | payer BC ==
--- NOTE | 2019-08-30 08:41 | UC ---
Abdominal Pain Female HPI - HPI Summary HPI Summary: 29-year-old woman comes in with a chief complaint of right flank pain. About a 3 out of 10. Describes it as a pressure. Does not radiate to the anterior abdomen. Patient has a history of kidney stones and she reports that this is the kind of symptoms she gets with her kidney stones. She's had 2 C-sections no other abdominal surgeries. Reports she's had have stents in the past. No quite any burning with urination or fevers or chills feels well other than feeling slightly dizzy with the flank pressure. She is followed by Dr. Whitten and [place] [facility]. - History of Current Complaint Chief Complaint: UCBackPain Stated Complaint: KIDNEY STONE Time Seen by Provider: 08/30/19 08:26 Hx Last Menstrual Period: 08/05/19 Pain Intensity: 0 Allergies/Adverse Reactions: Allergies Allergy/AdvReac Type Severity Reaction Status Date / Time azithromycin Allergy Unknown Verified 08/30/19 08:05 Reaction Details morphine Allergy Itching Verified 08/30/19 08:05 Home Medications: Home Medications Ibuprofen TAB* [Motrin TAB* 600 MG] 600 mg PO Q6H PRN 08/30/19 [History Confirmed 08/30/19] PMH/Surg Hx/FS Hx/Imm Hx Previously Healthy: Yes - kidney stones Other History Of: Negative For: Anticoagulant Therapy - Surgical History Surgical History: Yes Surgery Procedure, Year, and Place: 2 2012, 2016. AGE 2 ABDOMINAL/ LEFT LEG NECROTIZING FASCIITIS. TONSILS. WISDOM TEETH. KIDNEY STONES - Family History Known Family History: Positive: Other - mom has MS Negative: Hypertension, Diabetes, Blood Disorder Family History: KIDNEY STONES - Social History Alcohol Use: Occasionally Alcohol Amount: 2 per month Substance Use Type: None Smoking Status (MU): Light Every Day Tobacco Smoker Amount Used/How Often: ~1/4 PPD Length of Time of Smoking/Using Tobacco: Since Age 15 Household Exposure Type: Cigarettes - Immunization History Most Recent Influenza Vaccination: refussed Most Recent Tetanus Shot: hx Most Recent Pneumonia Vaccination: na Review of Systems All Other Systems Reviewed And Are Negative: Yes Constitutional: Positive: Other - see hpi Skin: Positive: Negative Eyes: Positive: Negative ENT: Positive: Negative Respiratory: Positive: Negative Cardiovascular: Positive: Negative Gastrointestinal: Positive: Other - see hpi Genitourinary: Positive: Other - see hpi Motor: Positive: Negative Neurovascular: Positive: Negative Musculoskeletal: Positive: Negative Neurological: Positive: Negative Psychological: Positive: Negative Is Patient Immunocompromised?: No Physical Exam Triage Information Reviewed: Yes Appearance: Well-Appearing, No Pain Distress, Well-Nourished Vital Signs: Initial Vital Signs Temp 98.3 F 08/30/19 08:03 Pulse 90 08/30/19 08:03 Resp 15 08/30/19 08:03 BP 115/68 08/30/19 08:03 Pulse Ox 100 08/30/19 08:03 Vital Signs Reviewed: Yes Eye Exam: Normal Eyes: Positive: Conjunctiva Clear Neck: Positive: Supple Respiratory: Positive: Lungs clear, Normal breath sounds, No respiratory distress Cardiovascular: Positive: RRR Abdomen Description: Positive: Nontender, Soft. Negative: CVA Tenderness (R), CVA Tenderness (L) Musculoskeletal: Positive: Strength Intact, ROM Intact Neurological: Positive: Alert, Muscle Tone Normal Psychological: Positive: Age Appropriate Behavior Skin Exam: Normal Abd Pain Female Course/Dx - Course Course Of Treatment: Lettuce Cutter: Deo Handley F ([id number]) Product Technician: FLORENTINO, ( NUANCE) Report Date: 08/30/2019 11:01:00 Report Status: Final ====== Start of Report Content Patient Name: MARIAH MURCIA Medical Record#: [id number] Ordering Physician: Gwyn Whiteside MD Acct.#: [id number] : 04/1990 Age: 29 Sex: F Location: [facility] Exam Date: 08/30/19915 ADM Status: REG ER Order Information: RENAL AND BLADDER Accession Number : [id number] CPT: 48625 INDICATION: Right flank pain. COMPARISON: Comparison is made with a prior CT of the abdomen and pelvis from January 21, 2018. TECHNIQUE : Multiple real-time images of the kidneys and urinary bladder were obtained. FINDINGS: The kidneys are normal in size shape and echogenicity. The right kidney measured 11.2 x 4.7 x 6.7 cm and the left kidney measured 12.1 x 5.4 x 4.7 cm. No hydronephrosis is seen. There is a echogenic focus in the lower pole of the right kidney measuring 4 x 4 millimeters in size most consistent with a calculus. The bladder is normal in contour. No intraluminal abnormalities are seen. No bladder wall thickening is noted. There are bilateral ureteral jets present within the urinary bladder. The prevoid volume was 621 ml and a post void residual was 8 ml. IMPRESSION: RIGHT RENAL CALCULUS, NO EVIDENCE FOR HYDRONEPHROSIS. < Electronically signed by Deo Handley MD in OV> 08/30/19 1057 Dictated By: Deo Handley MD Dictated Date/Time: 08/30/19 1051 Transcribed Date/Time: 1051 Copy to: CC:Delfina Hong MD; Magen Whitten MD; Gwyn Whiteside MD Imaging - [facility] Imaging - [place] [facility] [address] [address] ph [phone]) ph [phone]) [phone]) End of Report Content Lettuce Cutter: Shay Cesar Daniel, ([id number]) Product Technician: FLORENTINO ( FLORENTINO) Report Date: 08/30/2019 09:28:00 Report Status: Final ====== Start of Report Content Patient Name: MARIAH MURCIA Medical Record#: [id number] Ordering Physician: Gwyn Whiteside MD Acct.#: [id number] : 04/1990 Age: 29 Sex: F Location: URGENT [facility] Exam Date: 08/30/19905 ADM Status: REG ER Order Information: ABDOMEN/KUB 1 VW Accession Number: [id number] CPT: 72324 HISTORY: RT FLANK PAIN HX KIDNEY STONES COMPARISONS: August 01, 2019 January 31, 2018 VIEWS: Frontal views of the abdomen. FINDINGS: BOWEL: There is a nonspecific bowel gas pattern, with nondilated small bowel gas noted. CALCULI: There are no abnormal calculi. BONES AND SOFT TISSUES: There are no osseous abnormalities. OTHER FINDINGS: The lung bases are clear. There is no subphrenic gas. IMPRESSION: NO APPRECIABLE NEPHROLITHIASIS. <Electronically signed by Shay Cesar MD in OV> 08/30/19924 Dictated By: Shay Cesar MD Dictated Date/Time: 08/30/19923 Transcribed Date/Time: 08/30/19923 Copy to: CC:Delfina Hong MD; Magen Whitten MD; Gwyn Whiteside MD Imaging - [facility] Imaging - [facility] [address] [address] ph ([phone]) ph ([phone]) ph ([phone]) ===== End of Report Content I discussed the case with Dr. Whitten the urologist. He recommended a KUB and a kidney bladder ultrasound. He review those results and I discussed the results with the patient. Urine was negative for signs of infection. Patient has no fever. At this time with no hydronephrosis and a 4 mm kidney stone in the kidney on the right side there is no urologic interventions. Patient will follow-up with Dr. Whitten. I discussed the cause of the pain with the patient. At this time with vital signs stable and normal urine ultrasound and KUB the plan would be pain medications [id number] as needed if anything got worse with fevers chills anterior abdominal pain or any questions or concerns the patient she get reevaluated in the emergency department.. - Differential Dx/Diagnosis Provider Diagnosis: Right flank pain, Low back pain Discharge ED - Sign-Out/Discharge Documenting (check all that apply): Patient Departure All imaging exams completed and their final reports reviewed: Yes - Discharge Plan Condition: Stable Disposition: HOME Patient Education Materials: Flank Pain (ED), Back Pain (ED) Referrals: Delfina Hong MD [Primary Care Provider] - Magen Whitten MD [Medical Doctor] - Additional Instructions: FOLLOW UP WITH DR WHITTEN. FOLLOW UP WITH YOUR PRIMARY CARE DOCTOR. GET REEVALUATED SOONER IF NOT IMPROVING OR GO TO THE EMERGENCY DEPARTMENT IF WORSE; PAIN, FEVER, YOU FEEL ILL OR ANY QUESTIONS OR CONCERNS. - Billing Disposition and Condition Condition: STABLE Disposition: Home
[2019-08-30 10:19] VITALS: BP 111/71
== END 2019-08-30 11:43 | disposition home or self-care (01) ==
LOC: UCCORT 07:55
DX: M54.5 Low back pain (principal); R10.9 Unspecified abdominal pain; F17.210 Nicotine dependence, cigarettes, uncomplicated; Z87.442 Personal history of urinary calculi; Z88.1 Allergy status to other antibiotic agents; Z88.5 Allergy status to narcotic agent
CPT/HCPCS: 74018; 76770; 81003; 84702; 99212; G0463

== ENCOUNTER 2019-12-05 09:35 | Emergency (ER) | payer BC ==
--- OUTSIDE RECORDS SUMMARY | 2019-12-05 09:41 | XMS REPORT | Continuity of Care Document ---
:1990 External Reference #:[id number] Author Name Cordelia Roberson O.D. 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 Onset: 11/02/2019 Myopia Cordelia Roberson O.D. Onset: 11/02/2019 Social History Type Date Description Comments Sex Unknown ETOH Use Rarely consumes alcohol Tobacco Use Start: Unknown Light tobacco smoker (10 or fewer cigarettes/day) Recreational Drug Use Denies Drug Use Smoking Status Reviewed: 11/02/19 Light tobacco smoker (10 or fewer cigarettes/day) Allergies, Adverse Reactions, Alerts Active Allergies Reaction Severity Comments Date Morphine 11/02/2019 Medications Active Medications SIG Qnty Indications Ordering Provider Date Gabapentin 1 daily Unknown 300mg Capsules Immunizations Description No Information Available Vital Signs Description No Information Available Results Description No Information Available Procedures Description No Information Available Medical Devices Description No Information Available Encounters Description No Information Available Assessments Date Code Description Provider 11/02/2019 H52.13 Myopia, bilateral Cordelia Roberson O.D. 11/02/2019 H52.223 Regular astigmatism, bilateral Cordelia Roberson O.D. Plan of Treatment 11/02/2019 - Cordelia Roberson O.D.H52.13 Myopia, bilateralComments:You have Myopia, or near sightedness. I have given you a prescription for glasses.Follow up:2 years You can expect to have your eyes dilated at your next visit. If Dr. Roberson orders any additional testing, it may require extra time. We recommend that you bring sunglasses, as dilation drops often make you light sensitive until they wear off. We always recommend you bring someone to drive youhome if you are uncomfortable driving with your eyes dilated. If you have any questions before your next visit, feel free to call our office at .R22.084 Regular astigmatism, bilateralComments:Smoking can increase the risk of developing or worsening any eye related disease, as well as affect your overall health. If you are a smoker, we strongly recommend that you quit.If you are not a smoker, we strongly recommend that you do not start. Astigmatism is a common vision condition that happens when a person's cornea is not symmetrical. Dr. Roberson has given you a prescription to correct for this. Functional Status Description No Information Available Mental Status Description No Information Available Referrals Description No Information Available
--- OUTSIDE RECORDS SUMMARY | 2019-12-05 09:41 | XMS REPORT | Continuity of Care Document ---
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 - she also had a very irregular menstrual pattern; Dr Naranjo Rxd metformin for her which she thinks [...] 08/25/2014 Note: stool Ag test negative 01/24/18 Social History Type Date Description Comments Sex Unknown Tobacco Use Start: Unknown Current Cigarette Smoker 5-10 Cigarettes Daily Smoking Status Reviewed: 10/27/19 Current Cigarette Smoker 5-10 Cigarettes Daily ETOH Use Denies alcohol use Tobacco Use Start: Unknown End: Patient is a former Aug 2018 says 4-5 a Unknown smoker day Recreational Drug Use Denies Drug Use Exercise Type/Frequency Does not exercise Allergies, Adverse Reactions, Alerts Active Allergies Reaction Severity Comments Date Zithromax 07/13/2017 Morphine 07/13/2017 Medications Active Medications SIG Qnty Indications Ordering Date Provider Ryann take daily as 28tabs R10.32 Cheyenne Aguilera, 10/27/2019 1-35mg-mcg directed BUSINESS TEST ANALYST-Cde Tablets Sulfasalazine take one 60tabs M77.30 Keny Crockettr, 03/27/2019 500mg capsule/tablet M.D. Tablets daily by mouth for 1 week then 1 twice daily ongoing Gabapentin as needed Unknown 100mg Capsules Immunizations Description No Information Available Vital Signs Date Vital Result Comment 10/27/2019 8:05am Height 67 inches 5'7" Weight 194.38 lb Heart Rate 97 /min BP Systolic 107 mmHg BP Diastolic 68 mmHg O2 % BldC Oximetry 100 % BMI (Body Mass Index) 30.4 kg/m2 04/26/2019 8:28am Height 67 inches 5'7" Weight 184.25 lb Heart Rate 60 /min BP Systolic Sitting 95 mmHg BP Diastolic Sitting 60 mmHg Pain Level 3 O2 % BldC Oximetry 96 % BMI (Body Mass Index) 28.9 kg/m2 Results Description No Information Available Procedures Date Code Description Status 09/21/2018 13933547 Colonoscopy Completed Medical Devices Description No Information Available Encounters Description No Information Available Assessments Date Code Description Provider 10/27/2019 R10.32 Left lower quadrant pain Janette Melton Plan of Treatment Future Appointment(s):12/21/2019 9:00 am - [facility]10/27/2019 - Soniya MeltoneR10.32 Left lower quadrant painNew Medication:Alyacen 1/35 1-35 mg-mcg - take daily as directedFollow up: consult with Dr Thomas regarding Tubal Ligation Functional Status Description No Information Available Mental Status Description No Information Available Referrals Description No Information Available
[2019-12-05 09:49] VITALS: BP 88/57
--- NOTE | 2019-12-05 10:02 | UC ---
Throat Pain/Nasal Álvaro HPI - HPI Summary HPI Summary: 29-year-old female who feels like she has swollen glands the past 3 days. Her family has had strep last week. She denies any fever or chills. Today she has some nausea. - History of Current Complaint Chief Complaint: UCGeneralIllness Stated Complaint: FEVER/NAUSEA/ST Time Seen by Provider: 12/05/19 09:54 Hx Obtained From: Patient Hx Last Menstrual Period: 08/05/19 ?: No Onset/Duration: Gradual Onset Severity: Mild Pain Intensity: 0 Cough: None - Allergies/Home Medications Allergies/Adverse Reactions: Allergies Allergy/AdvReac Type Severity Reaction Status Date / Time azithromycin Allergy Unknown Verified 12/05/19 10:03 Reaction Details morphine Allergy Itching Verified 12/05/19 10:03 Home Medications: Home Medications NK [No Home Medications Reported] 12/05/19 [History Confirmed 12/05/19] PMH/Surg Hx/FS Hx/Imm Hx Previously Healthy: Yes GI/ History: Kidney Stones, Diverticulitis Psychological History: Anxiety Other History Of: Negative For: Anticoagulant Therapy - Surgical History Surgical History: Yes Surgery Procedure, Year, and Place: 2 2012, 2017. AGE 2 ABDOMINAL/ LEFT LEG NECROTIZING FASCIITIS. TONSILS. WISDOM TEETH. KIDNEY STONES - Family History Known Family History: Positive: Other - mom has MS Negative: Hypertension, Diabetes, Blood Disorder Family History: KIDNEY STONES - Social History Occupation: Employed Full-time Lives: With Family Alcohol Use: Rare Alcohol Amount: 2 per month Substance Use Type: None Smoking Status (MU): Light Every Day Tobacco Smoker Amount Used/How Often: ~1/4 PPD Length of Time of Smoking/Using Tobacco: Since Age 15 Household Exposure Type: Cigarettes - Immunization History Most Recent Influenza Vaccination: refussed Most Recent Tetanus Shot: hx Most Recent Pneumonia Vaccination: na Review of Systems All Other Systems Reviewed And Are Negative: Yes ENT: Positive: Other - No sore throat however family members have had strep last week. She feels like her glands are swollen today. She has mild nausea Gastrointestinal: Positive: Nausea Is Patient Immunocompromised?: No Physical Exam Triage Information Reviewed: Yes Appearance: Well-Appearing, No Pain Distress, Well-Nourished Vital Signs: Initial Vital Signs Temp 98.2 F 12/05/19 09:45 Pulse 72 12/05/19 09:45 Resp 18 12/05/19 09:45 BP 88/57 12/05/19 09:45 Pulse Ox 100 12/05/19 09:45 Vital Signs Reviewed: Yes Eyes: Positive: Conjunctiva Clear ENT: Positive: Hearing grossly normal, Pharynx normal, TMs normal, Uvula midline Neck: Positive: Supple, Nontender, No Lymphadenopathy Respiratory: Positive: Lungs clear, Normal breath sounds, No respiratory distress, No accessory muscle use Cardiovascular: Positive: RRR, No Murmur, Pulses Normal, Brisk Capillary Refill Abdomen Description: Positive: Nontender, No Organomegaly, Soft. Negative: CVA Tenderness (R), CVA Tenderness (L), Distended, Guarding, Hepatomegaly, McBurney' s Point Tenderness, Splenomegaly Bowel Sounds: Positive: Present Musculoskeletal Exam: Normal Neurological Exam: Normal Psychological Exam: Normal Skin Exam: Normal Throat Pain/Nasal Course/Dx - Course Course Of Treatment: Rapid strep test: Negative The patient is comfortable here. She refused medication for nausea. She is to follow-up with her primary care provider if no improvement 3 or 4 days. - Differential Dx/Diagnosis Provider Diagnosis: Nausea, Exposure to strep throat Discharge ED - Sign-Out/Discharge Documenting (check all that apply): Patient Departure All imaging exams completed and their final reports reviewed: No Studies - Discharge Plan Condition: Good Disposition: HOME Patient Education Materials: Pharyngitis (ED) Referrals: Delfina Hong MD [Primary Care Provider] - Additional Instructions: Follow-up with your primary care provider if you have continued symptoms or any worsening symptoms. - Billing Disposition and Condition Condition: GOOD Disposition: Home
== END 2019-12-05 10:22 | disposition home or self-care (01) ==
LOC: UCCORT 09:35
DX: R11.0 Nausea (principal); R50.9 Fever, unspecified; F17.210 Nicotine dependence, cigarettes, uncomplicated; Z20.818 Contact with and (suspected) exposure to other bacterial communicable diseases; Z88.1 Allergy status to other antibiotic agents; Z88.5 Allergy status to narcotic agent
CPT/HCPCS: 87651; 99211; G0463